=== PATIENT | female | born 1940 | race Caucasian/White ===

== ENCOUNTER → 2024-06-13 10:43 | Outpatient (REF) | payer OTHER, SELFPAY | LOC: DHVS 10:43 | PROVIDERS: ATTENDING PHYSICIAN Surgery Vascular Surgery; FAMILY PHYSICIAN Student in an Organized Health Care Education/Training Program | DX: I65.29 Occlusion and stenosis of unspecified carotid artery (principal) | CPT/HCPCS: 93880 ==

== ENCOUNTER → 2024-10-06 06:49 | Outpatient (REF) | payer OTHER, SELFPAY | LOC: RAD 06:49 | PROVIDERS: ATTENDING PHYSICIAN Podiatrist Foot & Ankle Surgery; FAMILY PHYSICIAN Family Medicine | DX: M79.671 Pain in right foot (principal); I73.89 Other specified peripheral vascular diseases | CPT/HCPCS: 93922; 93925 ==

== ENCOUNTER → 2025-01-05 08:37 | Outpatient (REF) | payer OTHER, SELFPAY | LOC: RAD 08:37 | PROVIDERS: ATTENDING PHYSICIAN Family Medicine | DX: M81.0 Age-related osteoporosis without current pathological fracture (principal) | CPT/HCPCS: 77080 ==

== ENCOUNTER → 2025-05-27 08:11 | Outpatient (REF) | payer OTHER, SELFPAY | LOC: RCS 08:11 | PROVIDERS: ATTENDING PHYSICIAN Family Medicine | DX: I35.1 Nonrheumatic aortic (valve) insufficiency (principal); R01.1 Cardiac murmur, unspecified | CPT/HCPCS: 93306 ==

== ENCOUNTER → 2025-06-18 07:47 | Outpatient (REF) | payer OTHER, SELFPAY | LOC: RAD 07:47 | PROVIDERS: ATTENDING PHYSICIAN Surgery Vascular Surgery; FAMILY PHYSICIAN Family Medicine | DX: I65.29 Occlusion and stenosis of unspecified carotid artery (principal); I73.9 Peripheral vascular disease, unspecified | CPT/HCPCS: 93880; 93922; 93925 ==

== ENCOUNTER → 2025-07-01 07:00 | Outpatient (REF) | payer OTHER, SELFPAY | LOC: RAD 07:00 | PROVIDERS: ATTENDING PHYSICIAN Registered Nurse; FAMILY PHYSICIAN Family Medicine | DX: I73.9 Peripheral vascular disease, unspecified (principal) | CPT/HCPCS: 75635; Q9967 ==

== ENCOUNTER 2025-09-01 06:11 | Inpatient (IN) | payer OTHER, SELFPAY ==
[2025-08-20 09:29] VITALS: BMI 40.2
[2025-08-20 10:17] LABS: Hematocrit 36.5 % (37.0-47.0); Hemoglobin 12.5 g/dL (12.0-16.0); Mean Corp Hgb Conc. 34.2 g/dL (33.0-37.0); Mean Corpuscular Volume 98.6 fL (81.0-99.0); Nucleated Red Blood Cells % 0 %; Platelet Count 233 10^3/uL (130-400); Red Cell Dist. Width 12.4 % (11.5-14.5)
[2025-08-20 10:35] LABS: INR 1.00; PT 13.7 Sec (11.4-14.6)
[2025-08-20 10:37] LABS: APTT 30.1 Sec (23.4-35.0)
[2025-08-20 11:22] LABS: Blood Urea Nitrogen 12 mg/dl (7-17); Calcium 9.5 mg/dl (8.4-10.2); Carbon Dioxide 26 mmol/L (22-30); Chloride 89 mmol/L (98-107); Estimated Creatinine Clearance 43 ml/min; Glucose 90 mg/dl (70-99); Potassium 4.3 mmol/L (3.5-5.1); Sodium 123 mmol/L (135-145); eGFR > 60.00
--- NOTE | 2025-08-25 09:28 | PTCARENOTE ---
Na+ 123 collected on 08/20/25; Juan David @ 's office were both notified.
--- NOTE | 2025-08-28 15:31 | PTCARENOTE ---
Patients 08/20 sodium 126- reviewed by Dr. Lowery no additional interventions required
[2025-09-01] VITALS (17 sets, daily range): BP systolic 90–176; BP diastolic 40–80
[2025-09-01] MEDS: PERIDEX 0.12% ORAL RINSE 15 ML PO (07:08)
[2025-09-01] MEDS: NSS 500 IV (07:08)
[2025-09-01] MEDS: BACTROBAN NASAL 1 GRAM NASAL (07:08)
--- NOTE | 2025-09-01 07:32 | W.SUR.PREOP ---
Pre-Operative Surgical Note
-
I have examined this patient prior to the performance of the scheduled procedure.
The patient's condition is unchanged from the time of the current History and
Physical and the patient is able to undergo the scheduled procedure.
[2025-09-01 07:48] LABS: Blood Urea Nitrogen 11 mg/dl (7-17); Calcium 9.2 mg/dl (8.4-10.2); Carbon Dioxide 26 mmol/L (22-30); Chloride 98 mmol/L (98-107); Estimated Creatinine Clearance 48 ml/min; Glucose 83 mg/dl (70-99); Potassium 4.7 mmol/L (3.5-5.1); Sodium 133 mmol/L (135-145); eGFR > 60.00
[2025-09-01 10:29] LABS: ACT-LR - POC > 397 Seconds (116-155)
[2025-09-01 10:32] LABS: ACT-LR - POC 334 Seconds (116-155)
[2025-09-01 11:25] LABS: ACT-LR - POC 261 Seconds (116-155)
[2025-09-01 12:05] LABS: ACT-LR - POC 327 Seconds (116-155)
[2025-09-01 13:05] LABS: ACT-LR - POC 248 Seconds (116-155)
--- NOTE | 2025-09-01 13:46 | CON.PUL ---
Consultation
Consultation Request
Date/Time Consultation Requested: 09/01/2025
Date/Time Consultation Performed: 09/01/2025
Medical History
-
Chief Complaint: Clarification lower extremity, right more than left
History of Present Illness:
Patient is a 85-year-old female with known history of peripheral vascular disease and carotid artery stenosis status post carotid endarterectomy in the past who follows up with vascular surgery as outpatient for worsening claudication symptoms.
Reportedly right leg more affected than leg. Workup as outpatient was suggestive of severe peripheral vascular disease and patient was brought to the OR for revascularization. Postprocedure, patient was admitted to ICU for close monitoring.
Automation Technologist consultation was requested for further input.
Past medical history. Hypertension, hyperlipidemia, GERD, chronic kidney disease, carotid artery disease, Aortic stenosis
Past surgical history. Carotid endarterectomy, , hysterectomy, cataract surgery
Family history. Patient is adopted, no known history of lung cancer in the family
Social history. Non smoker
Allergies / Home Medications
Allergies
Allergy/AdvReac Type Severity Reaction Status Date / Time
No Known Allergies Allergy Verified 09/01/25 07:15
Home Medications
�Medication �Instructions �Recorded �Confirmed �Last Taken �Type
acetaminophen 500 mg tablet 500 mg PO PRN PRN pain 05/18/21 09/01/25 08/31/25 23:00 History
(Tylenol Extra Strength)
calcium 333 mg-vit D3 133 1 ea PO DAILY Supplement 05/18/21 09/01/25 08/25/25 08:00 History
unit-magnesium 133 mg-zinc 5 mg
tablet (Cruz Mag Zinc Plus D3)
lisinopril 10 mg tablet 20 mg PO DAILY Blood Pressure 05/18/21 09/01/25 08/25/25 08:00 History
verapamil 240 mg 24 hr 240 mg PO DAILY Blood Pressure 05/18/21 09/01/25 08/31/25 08:00 History
capsule,extended release
atorvastatin 80 mg tablet 80 mg PO DAILY High Cholesterol 09/07/22 09/01/25 08/25/25 08:00 History
lansoprazole 15 mg capsule,delayed 15 mg PO Q72H Gastrointestinal 09/07/22 09/01/25 08/30/25 08:00 History
release Issue
iwsoduvd-pxb-uospr ac 400 1 tab PO DAILY Supplement 09/07/22 09/01/25 08/25/25 08:00 History
mcg-calcium carb 500 mg-vit K1 20
mcg tablet (Women's 50 Plus
Multivitamin)
diclofenac sodium 1 % topical gel 1 ea topical PRN PRN B/L KNEE PAIN 09/18/22 08/18/25 09/17/22 21:00 History
denosumab 60 mg/mL subcutaneous 60 mg SC [id number] osteoporosis 08/18/25 08/18/25 Unknown History
syringe (Prolia)
hydrochlorothiazide 25 mg tablet 25 mg PO DAILY Blood Pressure 08/18/25 09/01/25 08/25/25 08:00 History
psyllium 1 tsp PO DAILY Constipation 08/18/25 08/18/25 Unknown History
aspirin 81 mg chewable tablet 81 mg PO DAILY Blood Clot 09/01/25 09/01/25 09/01/25 05:00 History
Prevention/Tx
mupirocin 2 % topical ointment 1 applic topical BID groin wounds 09/01/25 09/01/25 09/01/25 05:00 History
Review of Systems
-
Hematologic/Lymphatic: Other (All 14 systems reviewed and negative except as stated above in the history of present illness. Expected postoperative pain)
Vitals / Labs / Diagnostic Testing
Vital Signs
Temp Pulse Resp BP Pulse Ox
97.6 F 82 10 176/44 99
09/01/25 06:27 09/01/25 07:15 09/01/25 07:15 09/01/25 06:52 09/01/25 07:15
Diagnostic Testing:
Physical Exam
-
HEENT: Normocephalic
Cardiovascular: S1/S2
Respiratory: Clear
GI: Non Distended
Neurology: Awake
Skin: Warm
General: Comfortable
Assessment
-
Patient is a 85-year-old female with chronic limb ischemia, s/p aortoiliac stent grafting for severely calcified aortoiliac occlusive disease, loon angioplasty and stenting of left iliac bifurcation and proximal external iliac artery, bilateral
common femoral endarterectomies with profundoplasty's and patch angioplasty, by vascular surgery service, POD # 0
Continue observation following procedure
Follow neurovascular checks per protocol
ASA, Plavix and statin on board
Follow BP monitoring and parameters as set by primary team
Cardiac history reviewed
Monitor on telemetry
Pain control per protocol
RASS goal 0
No prior history of pulmonary disease, no prior h/o smoking
CXR reviewed indicating no acute disease
No prior PFTs for review
Encouraged IS
Diet advancement per protocol
Aspiration precautions
GI prophylaxis: Protonix
Cr at baseline, follow UO
Critical I/Os
Void trials
Replete electrolytes as needed
No signs/symptoms suspicious for infectious etiology at this time
Will observe off antibiotics for now
Follow temperatures/CBC
Hb and platelets postoperatively stable
DVT prophylaxis: Subcu heparin.
Other medical diagnoses:
- Hypertension
- Hyperlipidemia
- Chronic GERD
- Osteoporosis
- History of carotid artery disease, status post carotid endarterectomy in 08/2022.
- H/o Aortic stenosis, moderate. Follows up with Cardiology as o/p
Critical Care time [56] mins -- The patient is admitted for acute critical illness for the treatment of vital organ failure and/or prevention of further life-threatening conditions. Total care includes time spent in review of history, physical exam,
medications, hemodynamic/ventilator parameters, laboratory data, imaging and discussion with house staff, pharmacy, respiratory therapy, ballistics expert forensic, and nursing
Data:
CXR 08/2025: 1. Clear lungs.
2. No significant change compared to prior study.
ECHO 05/2025: Normal left ventricular size and function. Normal regional wall motion. Mild
concentric left ventricular hypertrophy. LV ejection fraction is 58% by
volumetric assessment. Diastolic function indeterminate.
Thickened mitral valve leaflets with decreased leaflet excursion. Mitral
annular calcification. There is likely mild mitral stenosis with mean gradient
of 4 mmHg and mitral valve area 2.3 cm2. There is at least moderate mitral
regurgitation which may have been underestimated due to mitral annular
calcification.
Indexed LA volume is moderately abnormal (42-48 mL/m2).
Trileaflet aortic valve. Thickened and calcified aortic valve with restricted
leaflet motion. Moderate aortic stenosis. Peak/mean gradients across the aortic
valve are 38/20 mmHg. Using an LVOT diameter of 1.9 cm, the aortic valve by the
Continuity equation is calculated at 1.4 cm2. Mild aortic regurgitation.
Tricuspid valve opens normally. Mild tricuspid regurgitation. Estimated
pulmonary artery pressure of 34 mmHg. Assuming a right atrial pressure of 3
mmHg.
Dilated right atrium.
Normal right ventricular size and function.
Since echo August 2022, there is moderate aortic stenosis, MR has worsened
from mild to at least moderate and there is mild mitral stenosis.
Lexiscan 08/2022: Negative for ischemia
--- NOTE | 2025-09-01 14:41 | OR.RPT ---
Operative Report
Operative Report
Date of Operation: 09/01/2025
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
Procedure:
1. Intravascular lithotripsy to the distal abdominal aorta (12 mm x 30 mm Shockwave L6)
2. Intravascular lithotripsy to the left common iliac artery and external iliac artery (9 mm x 30 mm Shockwave L6)
3. Intravascular lithotripsy to the right common iliac artery and external iliac artery (9 mm x 30 mm shockwave L6)
4. Aortoiliac stent grafting using Endologix AFX device for severely calcified aortoiliac occlusive disease (22�60/13�40 AFX main body; 25�75 suprarenal extension)
5. Balloon angioplasty and stenting of left iliac bifurcation and proximal external iliac artery (overlapping express LD stents 10 mm x 37 mm distal common iliac artery, 9 mm x 37 mm proximal external iliac artery)
6. BILATERAL common femoral endarterectomies with profundoplasties and patch angioplasty using bovine pericardium
7. Introduce wire and catheter to aorta from bilateral femoral artery access
8. Diagnostic aortobiiliac arteriogram
Surgeon: Clinton Hernandez III, MD
Jv Baseball Coach: Alesia Capone MD PGY2
Anesthesia: General
Complications: None
Estimated Blood Loss: 300 cc
History and Indications for Procedure: 85-year-old female with debilitating claudication and severe heavily calcified aortoiliac and iliofemoral occlusive disease. We brought her to the operating room for hybrid revascularization
Procedure in Detail: Milly Ivy was correctly identified and placed supine on the operating table. The pannus was retracted. Using ultrasound guidance we identified the common femoral arteries and marked vertical incisions appropriately at the
skin. After adequate induction of anesthesia the abdomen, pelvis and bilateral groins were positioned, prepped and draped in the usual sterile fashion. Preoperative antibiotics were administered. A timeout procedure was performed with the nursing
and anesthesia staff confirming the patients identity as well as the nature and laterality of the procedure.
Vertical incisions were made bilaterally over the previously made skin narayanan. Using electrocautery and sharp dissection the common femoral arteries were exposed bilaterally. Dissection was continued well under the inguinal ligaments bilaterally to
the distal external iliac arteries. Proximal control was obtained bilaterally with vessel loops around the distal external iliac arteries. We continued dissection distally and expose the femoral bifurcations bilaterally. The proximal superficial
femoral arteries were controlled with vessel loops bilaterally. The proximal profunda femoral arteries were exposed and controlled with vessel loops bilaterally.
Systemic heparin was administered. Under direct visualization we accessed the common femoral arteries bilaterally at soft spots away from the calcified plaque. Bilateral 8 Gambian sheaths were then placed over Bentson wires. A retrograde iliac
arteriogram was performed on the left demonstrating significant calcified iliac occlusive disease. Under roadmap guidance we navigated through the iliac disease using a Quickcross catheter and Glidewire. We then navigated through the coral reef
occlusive plaque in the distal abdominal aorta using the same approach. The wire and catheter were advanced into the distal descending thoracic aorta. I exchanged out for a V18 wire.
On the right I was able to navigate a Bentson wire to the distal abdominal aorta. I then used a Quickcross catheter and Glidewire to navigate through the coral reef plaque in the distal abdominal aorta into the descending thoracic aorta. I then
exchanged out for a V18 wire on the right.
Due to the heavily calcified nature of the distal abdominal aortic plaque and in an effort to modify the calcium to achieve maximum luminal gain with endovascular intervention I elected to proceed with intravascular lithotripsy. A 12 mm x 30 mm
Shockwave L6 balloon was placed across the calcified aortic stenosis under roadmap guidance. Alternating rounds of lithotripsy pulse delivery at sub-nominal pressure and angioplasty at nominal pressure was performed across the distal abdominal
aortic stenosis. In between rounds of pulse delivery and angioplasty the balloon was deflated and repositioned under roadmap guidance. All 300 pulses were delivered. This balloon was then removed.
Due to the heavily calcified nature of the left common iliac artery, iliac bifurcation and proximal external iliac artery disease and in an effort to modify the calcium to achieve maximum luminal gain with endovascular intervention I elected to
proceed with intravascular lithotripsy. A 9 mm x 30 mm Shockwave L6 balloon was placed across the iliac stenosis under roadmap guidance. Alternating rounds of lithotripsy pulse delivery at sub-nominal pressure and angioplasty at nominal pressure was
performed across the stenosis. In between rounds of pulse delivery and angioplasty the balloon was deflated and repositioned under roadmap guidance. The aortic bifurcation, entire length of left common iliac artery, iliac bifurcation and proximal
external iliac artery were treated with this balloon. All 300 pulses were delivered.
Due to the heavily calcified nature of the right common iliac and external iliac artery disease and in an effort to modify the calcium to achieve maximum luminal gain with endovascular intervention I elected to proceed with intravascular
lithotripsy. A 9 mm x 30 mm Shockwave L6 balloon was placed across the stenosis under roadmap guidance. Alternating rounds of lithotripsy pulse delivery at sub-nominal pressure and angioplasty at nominal pressure was performed across the stenosis.
In between rounds of pulse delivery and angioplasty the balloon was deflated and repositioned under roadmap guidance. The aortic bifurcation, right common iliac artery and external iliac artery were treated with this balloon. All 300 pulses were
delivered.
Following complete vessel prep of the aortoiliac segment with shockwave we then proceeded with the aortoiliac stent grafting portion of the procedure. On the right I exchanged out for a Lunderquist wire which was positioned in the proximal
descending thoracic aorta. On the left I advanced a longer 8 Gambian sheath into the distal abdominal aorta over an Amplatz wire.
Over the Lunderquist wire in the right femoral access I placed the 17 Gambian AFX introducer sheath and advanced the radio-opaque sheath tip to the abdominal aorta, proximal to the coral reef plaque in the abdominal aorta. An En-Snare catheter was
placed over a Bentson wire from the left femoral access and advanced to the aortic bifurcation. The En-Snare was then advanced through to the catheter tip.
The contralateral limb wire of the AFX2 main body was introduced through the introducer sheath and advanced to the aortic bifurcation. The 22-60/13-40 AFX2 bifurcated main body was then loaded onto the Lunderquist wire and advanced through the
introducer sheath. The wire was snared from the contralateral side and pulled out the left femoral access and the AFX2 main body was advanced until the limbs were above the aortic bifurcation. The entire system was then pulled down onto the aortic
bifurcation. The main body was then deployed by pulling the control cord.
The contralateral limb was then deployed by pulling the yellow limb cover. Once this was completed I advanced a pigtail catheter over the contralateral limb wire until the tip was in contact with the wire lock. The contralateral limb was then pulled
as I advanced the pigtail up to release it from the wire lock. The wire was removed and the formed pigtail catheter was then advanced proximally.
The ipsilateral limb was deployed by pinning the inner core and retracting the AFX introducer sheath.
Through the introducer sheath I advanced a 25/75 suprarenal endograft extension and performed an arteriogram to clearly visualize the renal arteries. The stent was positioned appropriately below the left renal artery and deployed under roadmap
guidance in the desired location.
A Coda balloon was introduced on the right and used to profile the proximal and distal seal zones as well as all areas of overlap. The Coda balloon was also used to profile the right iliac limb. A 10 mm x 40 mm angioplasty balloon was used to
treat the left iliac limb. A retrograde arteriogram through the 8 Gambian sheath revealed an improved result following intravascular lithotripsy but residual plaque remained. I then extended distally using overlapping express LD stents. A 10 mm x
37 mm express LD was positioned in the distal left common iliac artery and deployed. I then extended this with a 9 mm x 37 mm express LD, crossing the iliac bifurcation and extending into the proximal external iliac artery.
A completion aortogram demonstrated an excellent technical result. The AFX stent graft was widely patent with good flow. The iliac bifurcations were preserved bilaterally. The bare-metal stents in the left distal common iliac and external iliac
arteries were patent. No residual stenosis was identified. The left renal artery was widely patent on completion. The superior mesenteric artery was patent on completion.
Following the endovascular portion of the procedure we turned our attention to the femoral endarterectomies. On the left, the wire and sheath were removed from the femoral access site. The proximal and distal vessel loops were secured. A Derra
clamp was placed on the external iliac artery under the inguinal ligament. I then extended the arterial puncture site proximally and distally with Dougherty scissors. The arteriotomy was extended onto the proximal profunda femoral artery at its
origin. An endarterectomy was performed in standard fashion using a [place] elevator. The distal end of the calcified plaque feathered nicely at the profunda femoral artery origin. No distal intimal flap was identified. Additional plaque elements
were pulled out of the distal external iliac artery using forceps and a hemostat. The endarterectomy plane was irrigated with heparinized saline solution. Any loose fronds of tissue were removed. A 1 cm precut piece of bovine pericardium was
brought onto the field and sewn in place as a patch angioplasty using a running 5-0 Prolene suture. Prior to the completion of the patch anastomosis I then allowed temporary forward bleeding and backbleeding. The area under the patch was irrigated
with heparinized saline solution to remove any potential thrombus or debris. The patch anastomosis was completed. The proximal clamp and the distal vessel loops were released. Immediately there was a good pulse within the common femoral artery
and proximal profunda femoral artery. A robust Doppler signal was audible in the profunda femoral artery and proximal branches. The patch suture line was closely inspected. Hemostasis was achieved at the suture line. The left groin was then
packed with dry gauze and we focused on the right.
On the right the 17 Gambian sheath and the wire were removed from the femoral access site. The proximal and distal vessel loops were secured. A Derra clamp was placed on the right external iliac artery under the inguinal ligament. I then extended
the arterial puncture site proximally and distally with Dougherty scissors. The arteriotomy was continued to the femoral bifurcation and onto the profunda femoral artery origin. An endarterectomy was performed in the standard fashion using a [place]
elevator. The distal end of the calcified plaque was feathered at the profunda femoral artery origin. A slight intimal flap at the profunda origin was tacked down with 3 interrupted evenly spaced 6-0 Prolene sutures along the back wall. This
provided a nice result. Additional plaque elements were pulled out of the distal external iliac artery using forceps and a hemostat. The endarterectomy plane was irrigated with heparinized saline solution. Any loose fronds of tissue were removed.
A 1 cm precut piece of bovine pericardium was brought onto the field and sewn in place as a patch angioplasty using a running 5-0 Prolene suture. Prior to the completion of the patch anastomosis I then allowed temporary forward bleeding and
backbleeding. The area under the patch was irrigated with heparinized saline solution to remove any potential thrombus or debris. The patch anastomosis was completed. The proximal clamp and the distal vessel loops were released. Immediately
there was a good pulse within the common femoral artery and proximal profunda femoral artery. A robust Doppler signal was audible in the profunda femoral artery and proximal branches. The patch suture line was closely inspected and hemostasis was
achieved.
Both groins were then irrigated with copious amounts of warm saline solution. The patch suture lines were both closely inspected once again and hemostasis was achieved. Protamine was administered. Hemostasis was achieved in the wound beds
bilaterally. The wounds were then closed in layers. Sterile MATTHEW dressings were applied.
The patient tolerated the procedure well and was taken to the PACU in stable condition.
Attestation: I was present and responsible for the entire procedure
Signed:
Clinton Hernandez III, MD
Vascular Surgery
[facility]
[2025-09-01 14:53] LABS: Hematocrit 31.3 % (37.0-47.0); Hemoglobin 10.9 g/dL (12.0-16.0); Mean Corp Hgb Conc. 34.8 g/dL (33.0-37.0); Mean Corpuscular Volume 100.6 fL (81.0-99.0); Platelet Count 221 10^3/uL (130-400); Red Cell Dist. Width 12.4 % (11.5-14.5)
[2025-09-01 15:01] LABS: Blood Urea Nitrogen 10 mg/dl (7-17); Calcium 9.2 mg/dl (8.4-10.2); Carbon Dioxide 20 mmol/L (22-30); Chloride 103 mmol/L (98-107); Estimated Creatinine Clearance 48 ml/min; Glucose 161 mg/dl (70-99); Potassium 4.2 mmol/L (3.5-5.1); Sodium 130 mmol/L (135-145); eGFR > 60.00
[2025-09-01] MEDS: PLAVIX 300 MG PO (15:24)
[2025-09-01 15:43] LABS: B.E. - POC -2.2 mmol/L; Glucose - POC 148 mg/dl (70-99); HCO3 - POC 22 mmol/L (21-28); Hematocrit - POC 31 % PCV (37-47); Hemodilution- POC Yes; Hemoglobin Calculated - POC 10.7; Ionized Calcium - POC 1.04 mmol/L (1.15-1.33); Lactate - POC 0.83 mmol/L (0.36-0.75); O2 Saturation %Calculated-POC 99.6 % (94-98); PCO2 - POC 37 mmHg (35-48); PO2 - POC 177 mmHg (83-108); Potassium - POC 3.9 mmol/L (3.5-5.1); Sodium - POC 133 mmol/L (136-145); Specimen Type - POC Arterial; pH - POC 7.40 (7.35-7.45)
[2025-09-01 16:24] LABS: Glucose - Point of Care 133 mg/dl (70-99)
[2025-09-01] MEDS: NSS 1000 IV (16:58)
[2025-09-01] MEDS: HEPARIN 5000 UNITS SC ×2 (17:30→23:54)
[2025-09-01] MEDS: CARDENE 200 IV (17:42)
--- NOTE | 2025-09-01 18:43 | PTCARENOTE ---
Received patient from PACU at 1615 s/p B/L femoral endarterectomy. Assessment, vital signs and neurovasc assessments documented in flowsheets. + b/l pedal and L post tib pulses, (-) R post tib on doppler- Vascular team made aware of neurovasc and
vital sign trends. Updates with wood tool maker at bedside. Cardene gtt targeting MAP 70-90 per vascular team. Strict bedrest. [place] huggar in place. Call dickson within reach.
[2025-09-01 19:58] LABS: ALT (SGPT) 21 U/L (0-35); AST (SGOT) 33 U/L (14-36); Albumin 3.3 g/dl (3.5-5.0); Alkaline Phosphatase 48 U/L (38-126); Magnesium 1.7 mg/dl (1.6-2.3); Total Protein 5.8 g/dl (6.3-8.2)
--- NOTE | 2025-09-01 20:00 | PTCARENOTE ---
Assumed care of patient. Hand-off drip validation done. Patient is aox3, resting in bed, no complaints of pain at this time. Temperature is 99.1 core. Patient is in NSR with Cardene at 2.5 for goal MAP 70-90. No edema noted on exam. Hand-off
neurovascular check done. Bilateral dorsalis pedis pulses obtained with doppler. Left PT pulse obtained with doppler. Right PT pulse unable to be obtained at 7pm check with doppler. Per off-going nurse this is how patient was received from PACU
post-op and the vascular PAs and Dr. Hernandez were made aware. At 8pm check right PT pulse able to obtained with doppler, witnessed by two nurses. Sensation intact. Cap refill > 2 seconds bilaterally. Bilateral femoral sites intact. Patient is
saturating 100% on 4L NC, lung sounds clear. Abdomen is round, soft, nontender. No gas yet. Patient has temperature sensing Hernandez catheter in place. Draining light yellow urine. IV sites and arterial line c/d/i.
[2025-09-01] MEDS: BACTROBAN 2% OINTMENT 1 APPLIC TOPICAL (20:02)
[2025-09-01 20:26] LABS: APTT 32.5 Sec (23.4-35.0); INR 1.13; PT 14.8 Sec (11.4-14.6)
[2025-09-02] VITALS (17 sets, daily range): BP systolic 82–145; BP diastolic 38–64; BMI 38.5
--- NOTE | 2025-09-02 | PTCARENOTE ---
No change in patient assessment. Q1 neurovascular checks continued with doppler pulses in bilateral DP and PTs. Patient has no complaints of pain. Cardene running @ 2.5 mg/hr for MAP goal of 70-90. Current MAP 87.
[2025-09-02] MEDS: ZOFRAN 4 MG IV (03:06)
[2025-09-02] MEDS: NSS 1000 IV (03:10)
--- NOTE | 2025-09-02 04:00 | PTCARENOTE ---
Cardene drip increased to 5mg/hr (25ml/hr) for goal MAP 70-90. Current MAP 80. Patient had episode of emesis, resolved with one dose of zofran. ICU SHIELD INSTALLER made aware. Continue Q1 neurovascular checks with doppler pulses obtainable bilaterally in DP and
PT sites. Patient has no complaints of pain at this time. No other changes in assessment.
[2025-09-02 04:24] LABS: Hematocrit 27.6 % (37.0-47.0); Hemoglobin 9.2 g/dL (12.0-16.0); Mean Corp Hgb Conc. 33.3 g/dL (33.0-37.0); Mean Corpuscular Volume 101.1 fL (81.0-99.0); Platelet Count 181 10^3/uL (130-400); Red Cell Dist. Width 12.8 % (11.5-14.5)
[2025-09-02 04:37] LABS: APTT 29.5 Sec (23.4-35.0); INR 1.09; PT 14.4 Sec (11.4-14.6)
[2025-09-02 04:52] LABS: Blood Urea Nitrogen 13 mg/dl (7-17); Calcium 8.3 mg/dl (8.4-10.2); Carbon Dioxide 22 mmol/L (22-30); Chloride 104 mmol/L (98-107); Estimated Creatinine Clearance 35 ml/min; Glucose 122 mg/dl (70-99); Potassium 4.2 mmol/L (3.5-5.1); Sodium 132 mmol/L (135-145); eGFR 48.94
[2025-09-02] MEDS: CARDENE 200 IV (05:01)
[2025-09-02] MEDS: CALAN EXTENDED RELEASE 240 MG PO (07:46)
[2025-09-02] MEDS: LIPITOR 80 MG PO (07:50)
[2025-09-02] MEDS: PLAVIX 75 MG PO (07:50)
[2025-09-02] MEDS: OSCAL 500 + D 500 MG PO (07:50)
[2025-09-02] MEDS: ORETIC 25 MG PO (07:50)
[2025-09-02] MEDS: ZESTRIL 20 MG PO (07:50)
[2025-09-02] MEDS: THERAGRAN 1 TABLET PO (07:50)
[2025-09-02] MEDS: LOW STRENGTH ASPIRIN 81 MG PO (07:50)
[2025-09-02] MEDS: METAMUCIL, KONSYL 1 PACKET PO (07:51)
[2025-09-02] MEDS: HEPARIN 5000 UNITS SC ×2 (07:51→17:14)
[2025-09-02] MEDS: BACTROBAN 2% OINTMENT 1 APPLIC TOPICAL (07:51)
--- NOTE | 2025-09-02 07:51 | W.PN.VS ---
Addendum entered and electronically signed by Arron Gonzalez MD 09/02/25 11:27:
Seen and examined with GENDER STUDIES PROFESSOR's. Agree with findings as noted below. Agree with plan as discussed and noted below.
Original Note:
Today's Communication / Plan
-
Seen and assessed with Dr. Gonzalez
Assessment/Plan
-
Postop day 1
1. Intravascular lithotripsy to the distal abdominal aorta (12 mm x 30 mm Shockwave L6)
2. Intravascular lithotripsy to the left common iliac artery and external iliac artery (9 mm x 30 mm Shockwave L6)
3. Intravascular lithotripsy to the right common iliac artery and external iliac artery (9 mm x 30 mm shockwave L6)
4. Aortoiliac stent grafting using Endologix AFX device for severely calcified aortoiliac occlusive disease (22�60/13�40 AFX main body; 25�75 suprarenal extension)
5. Balloon angioplasty and stenting of left iliac bifurcation and proximal external iliac artery (overlapping express LD stents 10 mm x 37 mm distal common iliac artery, 9 mm x 37 mm proximal external iliac artery)
6. BILATERAL common femoral endarterectomies with profundoplasties and patch angioplasty using bovine pericardium
7. Introduce wire and catheter to aorta from bilateral femoral artery access
8. Diagnostic aortobiiliac arteriogram
Plan:
Continue IV fluids, 500 cc bolus
Increase diet as tolerated
DC A-line
DC Cardene
Oral BP meds this morning
Chest x-ray
Out of bed as tolerated
Continue ASA and Plavix, daniel check Xarelto for Compass protocol
Continue ICU
Subjective Data
-
Date of Service: September 02, 2025
Patient seen at bedside this a.m. with Dr. Gonzalez. Patient offers no complaints at this time. Patient was noted to be nauseous postop with some vomiting. Patient denies nausea at this time. Minimal burping. On Cardene drip this morning.
Objective Data
-
Vital Signs
Temp Pulse Resp BP Pulse Ox
99.6 F 101 19 161/54 100
09/02/25 07:00 09/02/25 06:15 09/02/25 06:15 09/01/25 22:00 09/02/25 06:00
Intake and Output
09/01/25 09/02/25 09/03/25
06:59 06:59 06:59
Intake Total 1597.5 / 1597.5
Output Total 1140 / 1140
Balance 457.5 / 457.5
Intake:
Oral fluids 40 / 40
IV fluids (Total) 1557.5 / 1557.5
Nicardipine 237.5 / 237.5
Normosol 200 / 200
Nss 1,000 ml @ 80 mls/hr IV . 1120 / 1120
[id number] [facility] Rx#:[id number]
Output:
Urine, Hernandez 1140 / 1140
Lab Results
09/02/25 04:09
09/02/25 04:09
Calcium 8.3 mg/dl (8.4-10.2) L 09/02/25 04:09
Phosphorus 5.4 mg/dl (2.5-4.5) H 09/01/25 14:41
Magnesium 1.7 mg/dl (1.6-2.3) 09/01/25 14:41
Total Bilirubin 0.6 mg/dl (0.2-1.3) 09/01/25 14:41
AST 33 U/L (14-36) 09/01/25 14:41
ALT 21 U/L (0-35) 09/01/25 14:41
Alkaline Phosphatase 48 U/L (38-126) 09/01/25 14:41
Total Protein 5.8 g/dl (6.3-8.2) L 09/01/25 14:41
Albumin 3.3 g/dl (3.5-5.0) L 09/01/25 14:41
Physical Exam
-
AAO x 3
No tachypnea on room air
No tachycardia
Abdomen soft
Bilateral groin sites clean, dry, intact, soft, flat
Bilateral DP Dopplers audible
Bilateral feet warm and pink
[2025-09-02] MEDS: PROTONIX 40 MG PO (07:52)
[2025-09-02] MEDS: NSS 500 IV (08:31)
--- NOTE | 2025-09-02 09:00 | PTCARENOTE ---
Assumed care of patient at 0700 s/p B/L femoral endarterectomy. B/L groin janneth dressings intact. Assessment, vital sign and neurovasc checks documented in flowsheet. R radial a line removed. Plan discussed with ICU and Vascular teams during morning
rounds. Patient denies pain. Care on going.
--- NOTE | 2025-09-02 11:02 | WOUNDNOTE ---
[facility] RN note: Patient admitted with bilateral femoral endarterectomy s/p vascular procedure yesterday.
See H&P for complete history.
PMH: PAD, carotid stenosis, HTN, compression fractures, chronic back pain, ambulation dysfunction, R 5th toe callus, obesity.
Wound Location and type/assessment: Patient admitted with: R lateral 5th toe callus. L anterior 1st MTH dry linear scabbed abrasion. R medial thigh deep dermal ulcer suspect are broken blisters. Linear open areas abdominal fold. Blanchable red
heels.
Appetite: on low cholesterol diet.
Pressure redistribution devices in place: [employer] air bed. Air chair cushion. Patient needs help to turn.
Plan: Lower abdominal open area cleanse with saline, piece of silver alginate and non woven gauze tucked to cover. Silicone border foam applied to R medial thigh. Silver alginate and 1.6x2 inch silicone border foam applied to R lateral 5th toe.
Patient stated she applied silver alginate to R 5th toe when is opens. She is followed by Dr. Torres.
Will confirm orders with Nithya Alberto Vascular PA and discussed with JASON Pollack.
Care plan to be updated and will follow as needed.
Note to case management of equipment requested for discharge: Air mattress at SNF if needed.
--- NOTE | 2025-09-02 11:03 | WOUNDNOTE ---
LEFT GREAT TOE
--- NOTE | 2025-09-02 11:05 | WOUNDNOTE ---
RIGHT LATERAL 5TH TOE
--- NOTE | 2025-09-02 11:06 | WOUNDNOTE ---
RIGHT LATERAL 5HT TOE
--- NOTE | 2025-09-02 11:06 | WOUNDNOTE ---
RIGHT MEDIAL THIGH
--- NOTE | 2025-09-02 11:13 | WOUNDNOTE ---
LEFT ANTERIOR 1ST MTH
[2025-09-02] MEDS: TYLENOL 650 MG PO (11:24)
--- NOTE | 2025-09-02 12:50 | PTCARENOTE ---
Patient OOB to chair with x2 assist. OOB for 30 minutes then transferred back to bed d/t back pain. PRN tylenol dose given, patient resting comfortably in bed. Neurovasc checks, vital sign trends and assessments documented in flowsheets. Care
ongoing.
[2025-09-02 13:17] LABS: Glucose - Point of Care 99 mg/dl (70-99)
--- NOTE | 2025-09-02 13:30 | CON.NEURO4 ---
Addendum entered and electronically signed by Johny Mendoza MD 09/02/25 19:48:
I saw and examined the patient on 09/02/2025. I also discussed discussed the patient's assessment and the management plan with nurse practitioner Liss Lema. I generally agree with the note by nurse practitioner Liss Lema as given
below. My impression is as below.
This is an 85-year-old female with significant peripheral artery disease followed by Vascular Surgery as an outpatient who has presented to the hospital on 09/01/25 for revascularization. She underwent b/l aortoiliac stenting and b/l femoral
endarterectomy and was at her baseline postoperatively. Today (09/02/25), nursing staff reports that she was at her baseline at 1200 when she went to take a nap. At 1300 they went to do her vascular assessment and noted that her speech was suddenly
dysarthric and she reported that the tip of her tongue felt numb. A stroke alert was activated and CT head, CTA head/neck were obtained and were unremarkable
On neurologic examination, the patient is alert and oriented x 3, speech shows mild dysarthria and mild expressive aphasia, the cranial nerves II to XII grossly intact, the motor strength is grossly 5/5 bilaterally in the upper and lower
extremities, the sensations are grossly intact bilaterally and the cerebellar examination did not show limb ataxia.
The NIHSS was 2.
Upon returning from CT scan, her symptoms have significantly improved. She is not a candidate for TNK due to low NIHSS, recent major surgery, and no LVO. She is currently on DAPT with aspirin and clopidogrel. She is also on atorvastatin 80 mg
daily. Will recommend an echocardiogram and a carotid ultrasound. There is no need for MRI of the brain as it will not change the management.
Original Note:
Consultation - Neurology 4
-
CONSULTING PHYSICIAN: Johny Mendoza MD
REFERRING PHYSICIAN: Vascular Surgery/JORGE Grimes
DICTATED BY: JORGE Kilgore
DATE/TIME OF REQUEST: 09/02/25
DATE/TIME OF CONSULTATION: 09/02/25
Reason for Consultation: Stroke Alert
History of Present Illness:
This is an 85-year-old female with significant peripheral artery disease followed by Vascular Surgery as an outpatient who has presented to the hospital on 09/01/25 for revascularization. She underwent b/l aortoiliac stenting and b/l femoral
endarterectomy and was at her baseline postoperatively. Today (09/02/25), nursing staff reports that she was at her baseline at 1200 when she went to take a nap. At 1300 they went to do her vascular assessment and noted that her speech was suddenly
dysarthric and she reported that the tip of her tongue felt numb. A stroke alert was activated and CT head, CTA head/neck were obtained and are negative for any acute findings. NIHSS is 2 on neurology's assessment for mild dysarthria and very mild
difficulty getting her words out. Upon returning from CT scan, her symptoms have significantly improved. She denies any headache, dizziness, vision changes, numbness, and weakness. She is not a candidate for TNK/IAT due to low NIHSS, recent major
surgery, and no LVO. She is currently on DAPT with aspirin and clopidogrel.
Past Medical History: HTN, HLD, CKD, carotid artery stenosis, PAD, GERD, aortic stenosis, chronic back pain/compression fracture, ambulatory dysfunction, ischemic left third toe wound, ANIYA
Surgical History: R CEA, hysterectomy, b/l cataract removal,
Family History: Adopted.
Social History: Occasional alcohol. Denies tobacco and illicit drug use.
Allergies: No known allergies.
Home Medications: See below.
Review of Symptoms:
Patient denies any fever, headache, chest pain, shortness of breath, GI or symptoms.
�Per the HPI.�All systems are reviewed negative except above.
Physical Exam:
The patient is afebrile,abdomen is nondistended, breathing is unlabored, skin is cool and dry.
NIH Stroke Scale:
I performed the NIH stroke scale on the patient on 09/02/25 at 1330. The patient scored 2 points on the NIH stroke scale assessment, which were assigned as follows: See below.
Neurologic Examination:
The patient is awake, alert and oriented x 3. He is able to follow commands and answer questions appropriately. There is intermittent mild aphasia/difficulty getting words out, there is mild dysarthria. On cranial nerve assessment, pupils are 3 mm
bilateral, round and reactive to light and accommodation. Visual alanis are full. Extraocular movements are intact. Facial sensations are intact and bilaterally symmetrical, there is no facial asymmetry. Hearing is intact bilaterally to normal
conversation volume. Tongue palate and uvula are midline. Sternocleidomastoid strengths are full bilaterally. Motor strengths are 5/5 bilateral upper and 4/5 bilateral lower (limited due to surgical sites) extremities on medical [employer] [place]
scale. There is no drift or involuntary movement noted. There was no extinction noted on double simultaneous stimulation. Coordination is intact by finger to nose bilaterally.
Lab Results: See below.
Neuro Imaging:
1. CT Head 09/02/25: No acute intracranial abnormality. ASPECT score: 10.
2. CTA Head/Neck 09/02/25: No CTA evidence for high-grade stenosis or occlusion of the [place]. Patent right carotid arterial system status post carotid endarterectomy. Less than 50% stenosis of the left carotid bulb. Calcified
atherosclerosis elsewhere in the bilateral common carotid arteries and intracranial segments of the bilateral internal carotid arteries causing mild stenoses.
Differentials for the patient's presentation include:
1. Acute onset speech changes s/p extensive vascular surgery on 09/01/25; etiology of symptoms is uncertain, possibilities include a tiny stroke, TIA, metabolic disturbance in the setting of recent anesthesia.
Patient has the following risk factors for their symptoms: Recent vascular procedure, age, HTN, HLD
IV Tenecteplase/IAT candidacy: She is not a candidate for TNK/IAT due to low NIHSS, recent major surgery, and no LVO.
Recommendations:
-Continue DAPT with aspirin 81mg and clopidogrel 75mg daily.
-Do not see a role for further neurological imaging at this time, MRI brain findings will not change the plan of care. Consider this as an outpatient if symptoms persist.
-Goal normotension.
-Checking blood work for metabolic abnormalities.
-NIHSS and neurological checks per unit guidelines.
-Provide patient/family with a stroke education packet.
-LDL goal <70. Lipid panel is pending. Continue atorvastatin 80mg.
-Goal normoglycemia, hbA1c is pending.
-ST evaluation.
-DVT prophylaxis.
Discussed patient care with: Dr. Mendoza, the patient
Vital Signs and Labs
-
Vital Signs and Labs:
Vital Signs
Temp Pulse Resp BP Pulse Ox
99 F 103 19 144/51 100
09/02/25 11:13 09/02/25 07:50 09/02/25 06:15 09/02/25 07:50 09/02/25 08:00
Lab Results
09/02/25 04:09
09/02/25 04:09
PT 14.4 Sec (11.4-14.6) 09/02/25 04:09
INR 1.09 09/02/25 04:09
APTT 29.5 Sec (23.4-35.0) 09/02/25 04:09
Sodium 132 mmol/L (135-145) L 09/02/25 04:09
Potassium 4.2 mmol/L (3.5-5.1) 09/02/25 04:09
BUN 13 mg/dl (7-17) 09/02/25 04:09
Glucose 122 mg/dl (70-99) H 09/02/25 04:09
Calcium 8.3 mg/dl (8.4-10.2) L 09/02/25 04:09
Phosphorus 5.4 mg/dl (2.5-4.5) H 09/01/25 14:41
Medications
-
Active Medications
Generic Name Dose Route Start Last Admin
Trade Name Freq PRN Reason Stop Dose Admin
Acetaminophen 650 mg 09/01/25 13:30 09/02/25 11:24
Acetaminophen 325 Mg Tablet PO 09/29/25 13:29 650 mg
Q4HPRN PRN Administration
mild pain or temp >/= 100.4F
Aspirin 81 mg 09/02/25 08:00 09/02/25 07:50
Aspirin 81 Mg Chewable Tablet PO 09/30/25 07:59 81 mg
DAILY MARCELO Administration
Atorvastatin Calcium 80 mg 09/02/25 08:00 09/02/25 07:50
Atorvastatin (Lipitor) 80 Mg Tablet PO 09/30/25 07:59 80 mg
DAILY MARCELO Administration
Bisacodyl 10 mg 09/01/25 13:30
Bisacodyl 10 Mg Rectal Suppository RECTAL 09/29/25 13:29
DAILYPRN PRN
constipation
Calcium/Vitamin D 500 mg 09/02/25 08:00 09/02/25 07:50
Calcium Carbonate 500 Mg/Vitamin D 5 Mcg (200 Units) Tablet PO 09/30/25 07:59 500 mg
DAILY MARCELO Administration
Clopidogrel Bisulfate 75 mg 09/02/25 08:00 09/02/25 07:50
Clopidogrel 75 Mg Tablet PO 09/30/25 07:59 75 mg
DAILY MARCELO Administration
Heparin Sodium 5,000 units 09/01/25 16:00 09/02/25 07:51
Heparin 5,000 Units/Ml 1 Ml Vial SC 09/29/25 15:59 5,000 units
Q8 MARCELO Administration
Hydrochlorothiazide 25 mg 09/02/25 08:00 09/02/25 07:50
Hydrochlorothiazide 25 Mg Tablet PO 09/30/25 07:59 25 mg
DAILY MARCELO Administration
Hydromorphone HCl 0.5 mg 09/01/25 13:30
Hydromorphone 0.5 Mg/0.5 Ml Syringe IV 09/15/25 13:29
Q4HPRN PRN
severe pain
Sodium Chloride 1,000 mls @ 80 mls/hr 09/01/25 13:30 09/02/25 03:10
Nss IV 1,000 mls
.[id number] MARCELO Administration
Lisinopril 20 mg 09/02/25 08:00 09/02/25 07:50
Lisinopril 20 Mg Tablet PO 09/30/25 07:59 20 mg
DAILY MARCELO Administration
Multivitamins Therapeutic 1 tablet 09/02/25 08:00 09/02/25 07:50
Multivitamin Tablet PO 09/30/25 07:59 1 tablet
DAILY MARCELO Administration
Ondansetron HCl 4 mg 09/02/25 03:01 09/02/25 03:06
Ondansetron 4 Mg/2 Ml Vial IV 09/30/25 03:00 4 mg
Q6HPRN PRN Administration
NAUSEA/VOMITING
Oxycodone HCl 5 mg 09/01/25 13:30
Oxycodone 5 Mg Regular Release Tablet PO 09/15/25 13:29
Q4HPRN PRN
moderate pain
Pantoprazole Sodium 40 mg 09/02/25 08:00 09/02/25 07:52
Pantoprazole 40 Mg Delayed Release Tablet PO 09/30/25 07:59 40 mg
DAILY MARCELO Administration
Psyllium Hydrophilic Mucilloid 1 packet 09/02/25 08:00 09/02/25 07:51
Psyllium Packet PO 09/30/25 07:59 1 packet
DAILY MARCELO Administration
Sodium Chloride 0 flush 09/01/25 16:00
Sodium Chloride 0.9% (Flush) Syringe IV 09/29/25 15:59
PER PROTOCOL MARCELO
Verapamil HCl 240 mg 09/02/25 08:00 09/02/25 07:46
Verapamil 240 Mg (Extended Release) Tablet PO 09/30/25 07:59 240 mg
DAILY MARCELO Administration
Home Medications
�Medication �Instructions �Recorded
acetaminophen 500 mg tablet 500 mg PO PRN PRN pain 05/18/21
(Tylenol Extra Strength)
calcium 333 mg-vit D3 133 1 ea PO DAILY Supplement 05/18/21
unit-magnesium 133 mg-zinc 5 mg
tablet (Cruz Mag Zinc Plus D3)
lisinopril 10 mg tablet 20 mg PO DAILY Blood Pressure 05/18/21
verapamil 240 mg 24 hr 240 mg PO DAILY Blood Pressure 05/18/21
capsule,extended release
atorvastatin 80 mg tablet 80 mg PO DAILY High Cholesterol 09/07/22
lansoprazole 15 mg capsule,delayed 15 mg PO Q72H Gastrointestinal 09/07/22
release Issue
feqklfyk-fkz-vextr ac 400 1 tab PO DAILY Supplement 09/07/22
mcg-calcium carb 500 mg-vit K1 20
mcg tablet (Women's 50 Plus
Multivitamin)
diclofenac sodium 1 % topical gel 1 ea topical PRN PRN B/L KNEE PAIN 09/18/22
denosumab 60 mg/mL subcutaneous 60 mg SC [id number] 08/18/25
syringe (Prolia)
hydrochlorothiazide 25 mg tablet 25 mg PO DAILY Blood Pressure 08/18/25
psyllium 1 tsp PO DAILY Constipation 08/18/25
aspirin 81 mg chewable tablet 81 mg PO DAILY Blood Clot 09/01/25
Prevention/Tx
mupirocin 2 % topical ointment 1 applic topical BID groin wounds 09/01/25
NIH Stroke Score
Subsequent NIH Scale
Date of Subsequent NIH Scale: 09/02/25
Time of Subsequent NIH Scale: 13:30
NIH Stroke Score
Level of Consciousness: 0 - Alert
LOC Questions: 0-Answers both correctly
LOC Commands: 0-Performs both correctly
Best Horizontal Gaze: 0-Normal
Visual Alanis: 0=Normal, no visual loss
Facial Palsy: 0=Normal, symmetrical
Motor - Right Arm: 0=No drift 10 seconds
Motor - Left Arm: 0=No drift 10 seconds
Motor - Right Le-No drift 5 seconds
Motor - Left Le-No drift 5 seconds
Limb Ataxia: 0-Absent
Sensation: 0-Normal
Best Language: 1-Mild aphasia
Dysarthria: 1-Mild slurring
Extinction and Inattention: 0-No abnormality
NIH Total Score:: 2
Modified [place] (mRS) Score
Modified [place] Scale (mRS): No significant disability. Able to carry out usual activities.
Score: 1
Alteplase Contraindication
Inclusion and Exclusion criteria reviewed: Yes
IAT Contraindications: NIHSS < 6 and Imaging doesn't show large vessel occlusion as cause of stroke
--- NOTE | 2025-09-02 13:38 | W.PN.UPDATE ---
Addendum entered and electronically signed by Arron Gonzalez MD 09/02/25 15:33:
Seen and examined. Seen by neurology. Recurrent/history as noted below. Patient continues to note some dysarthria and her speech at times. Not really full on expressive aphasia but some dysarthric speech. No focal symptoms otherwise
neurologically on exam. CT angiogram images reviewed. Right carotid endarterectomy site is patent. She does have some common carotid plaque on that side. On the left side she has significant plaque at the bifurcation. However to my estimation
it seems less than 50% stenosis rendering.
Plan/ Appears to have had potentially a CVA type event. Appreciate neurology evaluation will defer to them regarding definitive management of his CVA. In the meanwhile we will obtain carotid duplexes to confirm less than 50% stenosis on the left
side (if felt to be greater than 50% by duplex, then may benefit from carotid revascularization). Will obtain echocardiogram as well to rule out cardioembolic source. May require MRI, will defer to neurology for now.
Original Note:
Update Note
Progress Note Update
Notified via TT by HOSE WRAPPER that patient had acute onset of thick dysarthric speech when she awoke from a short nap, immediately responded to bedside. On exam patient is AAOx3, in no apparent distress, resting in bed comfortably, BP stable, moves BL
UE and LE with equal strength, no dyspnea, no aphasia, face symmetrical, and tongue midline. Can appreciate slight dysarthria in her speech. Both patient and nurse state speech has improved over the past few minutes but has not fully returned to
baseline. Denies FONG, vision loss/changes, unilateral weakness, aphasia, or extremity paraesthesia. She does endorse tip of her tongue with a numbness sensation. Stroke alert activated and nutritional chemist neurologist updated on symptom presentation. score caller
surgeon Dr. Arron Gonzalez updated on patient PE and ROS, he agrees with plan.
--- NOTE | 2025-09-02 13:57 | CM ---
Initial assessment completed with patient who lives alone in a 1 story trailer with ramp to enter. FISHER SEAL patient was independent in ambulation with 4 prong cane for short distances , RW or rollator for longer distances. Has CPAP. No other DME. Does
drive. No in-home services. Does have HC-POA. No VA benefits. No psychiatric hospitalizations. PCP is Dr. Nilda Beltre. Pharmacy is [facility] on [address] in [place]. Discharge POC: Anticipate Home with [facility]. Jarrod will be staying with patient after
discharge.
--- NOTE | 2025-09-02 14:20 | PTCARENOTE ---
Patient assessed at 1200, no issues reported- patient then took a nap in bed. Woke patient at 1300 for hourly neurovasc assessment, patient reported numbness in tongue with mildly slurred speech. Vascular team made aware, stroke alert called. CT
brain ordered and obtained. Neuro and vascular at bedside assessing patient- patient not a candidate for TNK or thrombectomy. Slurred speech resolving, however mild dysarthria still noted. NIH documented in flowsheet. Speech therapy consult place.
Care ongoing.
--- NOTE | 2025-09-02 14:23 | W.PN.INTV ---
Today's Communication / Plan
Recommendations
- Resume nightly CPAP
- Neurochecks as ordered
- Follow-up labs in a.m.
Assessment
-
Patient is a 85-year-old female with known history of peripheral vascular disease and carotid artery stenosis status post carotid endarterectomy in the past who follows up with vascular surgery as outpatient for worsening claudication symptoms.
Reportedly right leg more affected than leg. Workup as outpatient was suggestive of severe peripheral vascular disease and patient was brought to the OR for revascularization. Postprocedure, patient was admitted to ICU for close monitoring.
Assessment Manager consultation was requested for further input.
Patient is a 85-year-old female with chronic limb ischemia, s/p aortoiliac stent grafting for severely calcified aortoiliac occlusive disease, loon angioplasty and stenting of left iliac bifurcation and proximal external iliac artery, bilateral
common femoral endarterectomies with profundoplasty's and patch angioplasty, by vascular surgery service, POD # 1
09/02 overview: Patient intermittently required Cardene infusion, currently off Cardene infusion. Saturating 100% on 2 L supplemental oxygen. Creatinine noted to slightly go up at 1.1. 1 episode of nausea and vomiting overnight. Current MAP of
84, not requiring any pressor support
Continue observation following procedure
Follow neurovascular checks per protocol
ASA, Plavix and statin on board
Follow BP monitoring and parameters as set by primary team
Cardiac history reviewed
Monitor on telemetry
Pain control per protocol
RASS goal 0
No prior history of pulmonary disease, no prior h/o smoking
CXR reviewed indicating no acute disease
No prior PFTs for review
Encouraged IS
Diet advancement per protocol
Aspiration precautions
GI prophylaxis: Protonix
Cr slightly increased at 1.1, patient received 500 mL bolus. Follow-up labs in a.m.
Critical I/Os
Void trials
Replete electrolytes as needed
No signs/symptoms suspicious for infectious etiology at this time
Will observe off antibiotics for now
Follow temperatures/CBC
Hb and platelets postoperatively stable
DVT prophylaxis: Subcu heparin.
Other medical diagnoses:
- Hypertension
- Hyperlipidemia
- Chronic GERD
- Osteoporosis
- History of carotid artery disease, status post carotid endarterectomy in 08/2022.
- H/o Aortic stenosis, moderate. Follows up with Cardiology as o/p
- Dysarthria 09/02. ?TIA. Minimal persistent symptoms. Stroke alert was called. CT, CTA without evidence of acute change. Neurology service on case. Patient currently on aspirin, Plavix and statins. Likely will need MRI for further evaluation
Critical Care time [36] mins -- The patient is admitted for acute critical illness for the treatment of vital organ failure and/or prevention of further life-threatening conditions. Total care includes time spent in review of history, physical exam,
medications, hemodynamic/ventilator parameters, laboratory data, imaging and discussion with house staff, pharmacy, respiratory therapy, endoscopic technician, and nursing
Data:
CXR 08/2025: 1. Clear lungs.
2. No significant change compared to prior study.
ECHO 05/2025: Normal left ventricular size and function. Normal regional wall motion. Mild
concentric left ventricular hypertrophy. LV ejection fraction is 58% by
volumetric assessment. Diastolic function indeterminate.
Thickened mitral valve leaflets with decreased leaflet excursion. Mitral
annular calcification. There is likely mild mitral stenosis with mean gradient
of 4 mmHg and mitral valve area 2.3 cm2. There is at least moderate mitral
regurgitation which may have been underestimated due to mitral annular
calcification.
Indexed LA volume is moderately abnormal (42-48 mL/m2).
Trileaflet aortic valve. Thickened and calcified aortic valve with restricted
leaflet motion. Moderate aortic stenosis. Peak/mean gradients across the aortic
valve are 38/20 mmHg. Using an LVOT diameter of 1.9 cm, the aortic valve by the
Continuity equation is calculated at 1.4 cm2. Mild aortic regurgitation.
Tricuspid valve opens normally. Mild tricuspid regurgitation. Estimated
pulmonary artery pressure of 34 mmHg. Assuming a right atrial pressure of 3
mmHg.
Dilated right atrium.
Normal right ventricular size and function.
Since echo August 2022, there is moderate aortic stenosis, MR has worsened
from mild to at least moderate and there is mild mitral stenosis.
Lexiscan 08/2022: Negative for ischemia
Subjective Dataa
Subjective Data
Date of Service:
Date of Service: September 02, 2025
Subjective:
Patient comfortable lying in bed in no acute distress
Review of Systems
Genitourinary: Other (All 14 systems reviewed and negative except as stated above in the history of present illness.)
Objective Data
Data Reviewed
Vital Signs / I&O / Oxygen:
Vital Signs
Temp Pulse Resp BP Pulse Ox
99 F 103 19 144/51 100
09/02/25 11:13 09/02/25 07:50 09/02/25 06:15 09/02/25 07:50 09/02/25 08:00
Intake and Output
09/01/25 09/02/25 09/03/25
06:59 06:59 06:59
Intake Total 1597.5 / 1702.5 1162.5 / 1162.5
Output Total 1140 / 1170 505 / 505
Balance 457.5 / 532.5 657.5 / 657.5
SaO2 100
Nasal Cannula flow liters per 2
minute
Physical Exam
General: Comfortable
HEENT: Normocephalic
Cardiovascular: S1-S2
Respiratory: Clear
GI: Soft and Non Distended
Neurology: Awake and Alert
Skin: Warm
Labs/Micro/Reports
Lab Data
09/02/25 04:09
09/02/25 04:09
Laboratory Results
09/01/25 09/02/25
20:09 04:09
PT 14.8 H 14.4
INR 1.13 1.09
APTT 32.5 29.5
--- NOTE | 2025-09-02 15:55 | PTOTSP ---
Dysphagia Evaluation:
Pt presents w/ acute dysarthria and tongue numbness after 09/01/25 revascularization operation. Stroke alert called. Negative findings on 09/[address] Due to increased fatigue during mastication of solids, it is recommended that pt is placed on
IDDSI 6 Soft and Bite Size, Thins. ST will F/U to monitor
1. IDDSI 6 Soft and Bite Size, Thins
2. Medications as best tolerated
3. Partial assistance/supervision w/ meals
4. Strategies: Single sips/bites, slow rate, alternating liquids and solids, GERD
5. F/U w/ ST to monitor diet-level tolerance, trial diet-level advancements, and provide strategies for dysarthric speech.
[2025-09-02] MEDS: NSS IV (16:51)
[2025-09-02 18:57] LABS: Ferritin 88.7 ng/ml (11.1-264.0)
[2025-09-02 19:28] LABS: Folate 18.3 ng/ml (2.76-20); Vitamin B12 427 pg/ml (239-931)
[2025-09-02] MEDS: MYLICON 80 MG PO (22:00)
[2025-09-03] VITALS (18 sets, daily range): BP systolic 105–143; BP diastolic 39–75; BMI 38.7
[2025-09-03] MEDS: HEPARIN 5000 UNITS SC ×3 (00:45→16:44)
[2025-09-03] MEDS: NSS 1000 IV ×3 (02:30→21:05)
--- NOTE | 2025-09-03 04:10 | PTCARENOTE ---
Initial assessment as documented. Pt states that speech is back to baseline and denies tongue numbness. B/L DP and PT pulses present with doppler. B/L groin MATTHEW dressings intact-small amount of shadowing, flashing green. RUE edema--weeping from
prior IV site, elevated. Denies pain. Safe environment maintained, pt repositioned q2h.
[2025-09-03 05:57] LABS: ALT (SGPT) 21 U/L (0-35); AST (SGOT) 87 U/L (14-36); Albumin 2.7 g/dl (3.5-5.0); Alkaline Phosphatase 35 U/L (38-126); Blood Urea Nitrogen 16 mg/dl (7-17); Calcium 7.4 mg/dl (8.4-10.2); Carbon Dioxide 25 mmol/L (22-30); Chloride 106 mmol/L (98-107); Estimated Creatinine Clearance 29 ml/min; Glucose 88 mg/dl (70-99); HDL Cholesterol 76 mg/dl; LDL Cholesterol, Calculated 22 mg/dl; Potassium 3.8 mmol/L (3.5-5.1); Sodium 133 mmol/L (135-145); Total Protein 5.0 g/dl (6.3-8.2); Very Low Density Lipoprotein 9 mg/dl (0-30); eGFR 40.05
[2025-09-03 06:30] LABS: Hematocrit 24.6 % (37.0-47.0); Hemoglobin 8.0 g/dL (12.0-16.0); Mean Corp Hgb Conc. 32.5 g/dL (33.0-37.0); Mean Corpuscular Volume 105.6 fL (81.0-99.0); Platelet Count 140 10^3/uL (130-400); Red Cell Dist. Width 13.1 % (11.5-14.5)
[2025-09-03 07:14] LABS: Nucleated Red Blood Cells % 0 %
[2025-09-03] MEDS: CALAN EXTENDED RELEASE 240 MG PO (07:40)
[2025-09-03] MEDS: METAMUCIL, KONSYL 1 PACKET PO (07:40)
[2025-09-03] MEDS: LIPITOR 80 MG PO (07:40)
[2025-09-03] MEDS: PLAVIX 75 MG PO (07:41)
[2025-09-03] MEDS: LOW STRENGTH ASPIRIN 81 MG PO (07:41)
[2025-09-03] MEDS: ZESTRIL 20 MG PO (07:41)
[2025-09-03] MEDS: THERAGRAN 1 TABLET PO (07:42)
[2025-09-03] MEDS: ORETIC 25 MG PO (07:42)
[2025-09-03] MEDS: PROTONIX 40 MG PO (07:42)
[2025-09-03] MEDS: OSCAL 500 + D 500 MG PO (07:43)
--- NOTE | 2025-09-03 07:53 | W.PN.VS ---
Addendum entered and electronically signed by Arron Gonzalez MD 09/03/25 14:13:
Seen and examined with DEBURRER's earlier this a.m. This is a late entry. Agree with findings and plan as discussed and noted below.
Original Note:
Today's Communication / Plan
-
patient seen and examined at bedside with Dr. Arron Gonzalez, below plan reviewed with attending.
Assessment/Plan
-
Postop day 2
1. Intravascular lithotripsy to the distal abdominal aorta (12 mm x 30 mm Shockwave L6)
2. Intravascular lithotripsy to the left common iliac artery and external iliac artery (9 mm x 30 mm Shockwave L6)
3. Intravascular lithotripsy to the right common iliac artery and external iliac artery (9 mm x 30 mm shockwave L6)
4. Aortoiliac stent grafting using Endologix AFX device for severely calcified aortoiliac occlusive disease (22�60/13�40 AFX main body; 25�75 suprarenal extension)
5. Balloon angioplasty and stenting of left iliac bifurcation and proximal external iliac artery (overlapping express LD stents 10 mm x 37 mm distal common iliac artery, 9 mm x 37 mm proximal external iliac artery)
6. BILATERAL common femoral endarterectomies with profundoplasties and patch angioplasty using bovine pericardium
7. Introduce wire and catheter to aorta from bilateral femoral artery access
8. Diagnostic aortobiiliac arteriogram
Plan:
Continue IV fluids given increased creatinine and decreased PO intake per patient
Continue Hernandez catheter for strict I&O
Continue home antihypertensive medications
Out of bed as tolerated
Continue ASA and Plavix, daniel check Xarelto for Compass protocol
Continue ICU
Defer to neurology team if MRI brain for further stroke workup is required
Continue speech therapy
Subjective Data
-
Date of Service: September 03, 2025
Patient seen and examined at bedside, reports speech is improving and overall feels better today. Denies nausea or vomiting but does note decrease appetite.
Objective Data
-
Vital Signs
Temp Pulse Resp BP Pulse Ox
98 F 99 17 143/44 100
09/03/25 03:14 09/03/25 07:42 09/02/25 20:45 09/03/25 07:42 09/02/25 21:30
Intake and Output
09/02/25 09/03/25 09/04/25
06:59 06:59 06:59
Intake Total 1597.5 / 1702.5 2402.5 / 2402.5
Output Total 1140 / 1170 1185 / 1185
Balance 457.5 / 532.5 1217.5 / 1217.5
Intake:
Oral fluids 40 / 40 240 / 240
IV fluids (Total) 1557.5 / 1662.5 1662.5 / 1662.5
Nicardipine 237.5 / 262.5 62.5 / 62.5
Normosol 200 / 200
Nss 1,000 ml @ 80 mls/hr IV . 1120 / 1200 1600 / 1600
[id number] MARCELO Rx#:[id number]
IV piggybacks 500 / 500
Output:
Urine, Hernandez 1140 / 1170 1185 / 1185
Lab Results
09/03/25 05:14
Calcium 7.4 mg/dl (8.4-10.2) L 09/03/25 05:14
Phosphorus 5.4 mg/dl (2.5-4.5) H 09/01/25 14:41
Magnesium 1.7 mg/dl (1.6-2.3) 09/01/25 14:41
Total Bilirubin 0.4 mg/dl (0.2-1.3) 09/03/25 05:14
AST 87 U/L (14-36) H 09/03/25 05:14
ALT 21 U/L (0-35) 09/03/25 05:14
Alkaline Phosphatase 35 U/L (38-126) L 09/03/25 05:14
Total Protein 5.0 g/dl (6.3-8.2) L 09/03/25 05:14
Albumin 2.7 g/dl (3.5-5.0) L 09/03/25 05:14
Physical Exam
-
AAO x 3
No tachypnea on room air
No tachycardia
Abdomen soft
Bilateral groin sites clean, dry, intact, soft, flat, MATTHEW CDI
Bilateral DP Dopplers audible
Bilateral feet warm and pink
BL UE and LE with equal strength
[2025-09-03 08:28] LABS: Glycohemoglobin (HgbA1c) 4.9 % (4.0-5.6)
--- NOTE | 2025-09-03 09:12 | PTCARENOTE ---
ROUND NOTES:
JACQUELINE --> Increase Crystalloids to 125 ml/hr.
Hold lisinopril + Hydrochlorothiazide.
Reassess noon time to see if stability promotes downgrade out of icu.
--- NOTE | 2025-09-03 12:19 | W.PN.INTV ---
Today's Communication / Plan
Recommendations
- Hold hydrochlorothiazide and lisinopril in view of acute kidney injury
- Decrease IV fluids to 125 mL/h
- Follow-up renal function labs in a.m.
- Patient transferring out of ICU. Stove Mechanic service will sign off, please call as needed
Assessment
-
Patient is a 85-year-old female with known history of peripheral vascular disease and carotid artery stenosis status post carotid endarterectomy in the past who follows up with vascular surgery as outpatient for worsening claudication symptoms.
Reportedly right leg more affected than leg. Workup as outpatient was suggestive of severe peripheral vascular disease and patient was brought to the OR for revascularization. Postprocedure, patient was admitted to ICU for close monitoring.
Stove Mechanic consultation was requested for further input.
Patient is a 85-year-old female with chronic limb ischemia, s/p aortoiliac stent grafting for severely calcified aortoiliac occlusive disease, loon angioplasty and stenting of left iliac bifurcation and proximal external iliac artery, bilateral
common femoral endarterectomies with profundoplasty's and patch angioplasty, by vascular surgery service, POD # 2
09/03 overview: Patient off Cardene infusion. Not on any pressors. Saturating well on room air. IV fluids infusing. Creatinine went up further to 1.3 today. NIH is 0
Continue observation following procedure
Follow neurovascular checks per protocol
ASA, Plavix and statin on board
Follow BP monitoring and parameters as set by primary team
Cardiac history reviewed
Monitor on telemetry
Pain control per protocol
RASS goal 0
No prior history of pulmonary disease, no prior h/o smoking
CXR reviewed indicating no acute disease
No prior PFTs for review
Encouraged IS
Diet advancement per protocol
Aspiration precautions
GI prophylaxis: Protonix
Cr further increased at 1.3, hold lisinopril and HCTZ. Increase IVF to 125 ml per hour. Labs in AM.
Critical I/Os
Void trials
Replete electrolytes as needed
No signs/symptoms suspicious for infectious etiology at this time
Will observe off antibiotics for now
Follow temperatures/CBC
Hb and platelets postoperatively stable
DVT prophylaxis: Subcu heparin.
Other medical diagnoses:
- Hypertension
- Hyperlipidemia
- Chronic GERD
- Osteoporosis
- History of carotid artery disease, status post carotid endarterectomy in 08/2022.
- H/o Aortic stenosis, moderate. Follows up with Cardiology as o/p
- Dysarthria 09/02. ?TIA. Minimal persistent symptoms. Stroke alert was called. CT, CTA without evidence of acute change. Neurology service on case. Patient currently on aspirin, Plavix and statins. No further interventions needed per Neurology
service.
Critical Care time [32] mins -- The patient is admitted for acute critical illness for the treatment of vital organ failure and/or prevention of further life-threatening conditions. Total care includes time spent in review of history, physical exam,
medications, hemodynamic/ventilator parameters, laboratory data, imaging and discussion with house staff, pharmacy, respiratory therapy, security operations engineer, and nursing
Data:
CXR 08/2025: 1. Clear lungs.
2. No significant change compared to prior study.
ECHO 05/2025: Normal left ventricular size and function. Normal regional wall motion. Mild
concentric left ventricular hypertrophy. LV ejection fraction is 58% by
volumetric assessment. Diastolic function indeterminate.
Thickened mitral valve leaflets with decreased leaflet excursion. Mitral
annular calcification. There is likely mild mitral stenosis with mean gradient
of 4 mmHg and mitral valve area 2.3 cm2. There is at least moderate mitral
regurgitation which may have been underestimated due to mitral annular
calcification.
Indexed LA volume is moderately abnormal (42-48 mL/m2).
Trileaflet aortic valve. Thickened and calcified aortic valve with restricted
leaflet motion. Moderate aortic stenosis. Peak/mean gradients across the aortic
valve are 38/20 mmHg. Using an LVOT diameter of 1.9 cm, the aortic valve by the
Continuity equation is calculated at 1.4 cm2. Mild aortic regurgitation.
Tricuspid valve opens normally. Mild tricuspid regurgitation. Estimated
pulmonary artery pressure of 34 mmHg. Assuming a right atrial pressure of 3
mmHg.
Dilated right atrium.
Normal right ventricular size and function.
Since echo August 2022, there is moderate aortic stenosis, MR has worsened
from mild to at least moderate and there is mild mitral stenosis.
Lexiscan 08/2022: Negative for ischemia
Subjective Dataa
Subjective Data
Date of Service:
Date of Service: September 03, 2025
Subjective:
Patient comfortably lying in bed in no acute distress.
Review of Systems
Genitourinary: Other (All 14 systems reviewed and negative except as stated above in the history of present illness.)
Objective Data
Data Reviewed
Vital Signs / I&O / Oxygen:
Vital Signs
Temp Pulse Resp BP Pulse Ox
97.7 F 86 13 129/46 100
09/03/25 12:00 09/03/25 11:00 09/03/25 11:00 09/03/25 11:00 09/03/25 11:00
Intake and Output
09/02/25 09/03/25 09/04/25
06:59 06:59 06:59
Intake Total 1597.5 / 1702.5 2402.5 / 2542.5 895 / 895
Output Total 1140 / 1170 1185 / 1225 210 / 210
Balance 457.5 / 532.5 1217.5 / 1317.5 685 / 685
SaO2 100
Nasal Cannula flow liters per 2
minute
Physical Exam
General: Comfortable
HEENT: Normocephalic
Cardiovascular: S1-S2
Respiratory: Clear
GI: Soft and Non Distended
Neurology: Awake and Alert
Skin: Warm
Labs/Micro/Reports
Lab Data
09/03/25 05:14
--- NOTE | 2025-09-03 12:28 | PTCARENOTE ---
Pt. to be downgraded tele per eye dropper assembler/vasc surg.
[2025-09-03 12:33] LABS: Hematocrit 25.3 % (37.0-47.0); Hemoglobin 8.2 g/dL (12.0-16.0)
--- NOTE | 2025-09-03 15:04 | W.PN.NEURO.1 ---
Addendum entered and electronically signed by Johny Mendoza MD 09/03/25 19:28:
I have seen and examined the patient today and have discussed the assessment and the management plan with the nurse practitioner Liss Lema. I agree with nurse practitioner Liss Lema's note and given below is my assessment and plan.
The patient is a 85 years old female who underwent revascularization by vascular surgery and yesterday she had speech difficulty. She was not a candidate for thrombolytic therapy as her NIHSS was low and she was status post recent major surgery and
also there was no large vessel occlusion present on CTA of head and neck.
Today the patient is doing well and she thinks that her speech is back to her baseline. She does not have any gross focal weakness. She is alert and oriented x 3.
Continue dual antiplatelet therapy. She will also be on atorvastatin 80 mg daily.
Will sign off. Please call if you have any question.
Original Note:
Today's Communication / Plan
-
.
Neuro Assessment/Plan
Assessment
This is an 85-year-old female with significant peripheral artery disease followed by Vascular Surgery as an outpatient who has presented to the hospital on 09/01/25 for revascularization. She underwent b/l aortoiliac stenting and b/l femoral
endarterectomy and was at her baseline postoperatively. Today (09/02/25), nursing staff reports that she was at her baseline at 1200 when she went to take a nap. At 1300 they went to do her vascular assessment and noted that her speech was suddenly
dysarthric and she reported that the tip of her tongue felt numb. A stroke alert was activated and CT head, CTA head/neck were obtained and were unremarkable.
Symptoms have now completely resolved.
Uncertain etiology of symptoms; possibilities include TIA or metabolic disturbance in the setting of recent extensive vascular surgery and anesthesia.
Plan
-Continue DAPT with aspirin 81mg and clopidogrel 75mg daily.
-Do not see a role for further neurological imaging at this time as patient is back to her baseline.
-Goal normotension.
-NIHSS and neurological checks per unit guidelines.
-Provide patient/family with a stroke education packet.
-LDL goal <70. LDL is 22 Continue atorvastatin 80mg.
-Goal normoglycemia, hbA1c is 4.9.
-ST.
-DVT prophylaxis.
-Neurology will sign-off, please contact us with any concerns/questions.
Subjective/Objective
Subjective Data
Date of Service: September 03, 2025
No acute events overnight. Patient reports that her speech difficulty has completely resolved.
Objective Data
Vital Signs
Temp Pulse Resp BP Pulse Ox
97.7 F 78 17 111/39 99
09/03/25 12:00 09/03/25 13:00 09/03/25 13:00 09/03/25 13:00 09/03/25 12:00
Lab Results
09/03/25 12:15
09/03/25 05:14
PT 14.4 Sec (11.4-14.6) 09/02/25 04:09
INR 1.09 09/02/25 04:09
APTT 29.5 Sec (23.4-35.0) 09/02/25 04:09
Sodium 133 mmol/L (135-145) L 09/03/25 05:14
Potassium 3.8 mmol/L (3.5-5.1) 09/03/25 05:14
BUN 16 mg/dl (7-17) 09/03/25 05:14
Glucose 88 mg/dl (70-99) 09/03/25 05:14
Calcium 7.4 mg/dl (8.4-10.2) L 09/03/25 05:14
Phosphorus 5.4 mg/dl (2.5-4.5) H 09/01/25 14:41
LDL Cholesterol, Calc 22 mg/dl 09/03/25 05:14
Vitamin B12 427 pg/ml (239-931) 09/02/25 04:09
Patient Allergies
No Known Allergies Allergy (Verified 09/01/25 07:15)
LDL Level: <70, continue statin
Review of Systems
-
History Source: Patient
EENT: Negative Blurry Vision, Decreased Vision or Swallowing Difficulty
Neuro: Negative Dizzy, Headache, Weakness, Numbness, Ataxia, Tremors or Speech Problem
Physical Exam
-
General: Well Developed, Well Nourished and No Apparent Distress
Eyes: No Ptosis and PERRLA
HEENT: Normocephalic and Atraumatic
Neck: Full Range of Motion
Extended Neurological Exam
Mood & Affect: Mood Unremarkable and Affect Unremarkable
Attention Span & Concentration: Awake, Alert, Interactive and No Difficulty with 2 Step Request
Memory: Unremarkable and Able to Recall
Tremor: Hand Tremor Absent and Head Tremor Absent
Involuntary Movement: None
Speech: Quality Unremarkable, Quantity Unremarkable and Rate of Production Unremarkable
Cranial Nerve II: Left Eye: Pupillary Reactivity Unremarkable, Pupillary Size Unremarkable and Visual Alanis Intact
Cranial Nerve II: Right Eye: Pupillary Reactivity Unremarkable, Pupillary Size Unremarkable and Visual Alanis Intact
Cranial Nerves III, IV, : Extraocular Movement: Extraocular Movement Full in all Directions
Cranial Nerve VII: Facial Symmetry: Normal Facial Symmetry
Cranial Nerve VIII: Hearing: Unremarkable Hearing to Normal Conversational Volume
Cranial Nerve XII: Tongue Protusion: Midline
Muscle Strength, Overall: Full in Upper Extremities and Other (BLE 4/5 due to pain)
Muscle Bulk & Tone: Bulk Unremarkable and Tone Unremarkable
Pronator Drift: No Drift in Upper Extremities and No Drift in Lower Extremities
Touch Sensation: Double Simultaneous Stimulation Unremarkable
Coordination: Bcjrpk-[id number]-xbveos Testing Unremarkable
Modified Donna Score (MRS)
-
Modified [place] Scale (mRS): No symptoms
Score: 0
Data Reviewed
-
CT-A: Report Reviewed and Image Reviewed
CT Head: Report Reviewed and Image Reviewed
Labs: Report Reviewed
Lipid Profile: Report Reviewed
HgbA1C: Report Reviewed
Reviewed with: Physician and Patient
Medications
-
Active Medications
Generic Name Dose Route Start Last Admin
Trade Name Freq PRN Reason Stop Dose Admin
Acetaminophen 650 mg 09/01/25 13:30 09/02/25 11:24
Acetaminophen 325 Mg Tablet PO 09/29/25 13:29 650 mg
Q4HPRN PRN Administration
mild pain or temp >/= 100.4F
Aspirin 81 mg 09/02/25 08:00 09/03/25 07:41
Aspirin 81 Mg Chewable Tablet PO 09/30/25 07:59 81 mg
DAILY MARCELO Administration
Atorvastatin Calcium 80 mg 09/02/25 08:00 09/03/25 07:40
Atorvastatin (Lipitor) 80 Mg Tablet PO 09/30/25 07:59 80 mg
DAILY MARCELO Administration
Bisacodyl 10 mg 09/01/25 13:30
Bisacodyl 10 Mg Rectal Suppository RECTAL 09/29/25 13:29
DAILYPRN PRN
constipation
Calcium/Vitamin D 500 mg 09/02/25 08:00 09/03/25 07:43
Calcium Carbonate 500 Mg/Vitamin D 5 Mcg (200 Units) Tablet PO 09/30/25 07:59 500 mg
DAILY MARCELO Administration
Clopidogrel Bisulfate 75 mg 09/02/25 08:00 09/03/25 07:41
Clopidogrel 75 Mg Tablet PO 09/30/25 07:59 75 mg
DAILY MARCELO Administration
Heparin Sodium 5,000 units 09/01/25 16:00 09/03/25 07:43
Heparin 5,000 Units/Ml 1 Ml Vial SC 09/29/25 15:59 5,000 units
Q8 MARCELO Administration
Hydrochlorothiazide 25 mg 09/02/25 08:00 09/03/25 07:42
Hydrochlorothiazide 25 Mg Tablet PO 09/30/25 07:59 25 mg
On Hold: 09/03/25 09:07 DAILY MARCELO Administration
Hydromorphone HCl 0.5 mg 09/01/25 13:30
Hydromorphone 0.5 Mg/0.5 Ml Syringe IV 09/15/25 13:29
Q4HPRN PRN
severe pain
Sodium Chloride 1,000 mls @ 125 mls/hr 09/01/25 13:30 09/03/25 02:30
Nss IV 1,000 mls
.Q8H MARCELO Administration
Lisinopril 20 mg 09/02/25 08:00 09/03/25 07:41
Lisinopril 20 Mg Tablet PO 09/30/25 07:59 20 mg
On Hold: 09/03/25 09:07 DAILY MARCELO Administration
Multivitamins Therapeutic 1 tablet 09/02/25 08:00 09/03/25 07:42
Multivitamin Tablet PO 09/30/25 07:59 1 tablet
DAILY MARCELO Administration
Ondansetron HCl 4 mg 09/02/25 03:01 09/02/25 03:06
Ondansetron 4 Mg/2 Ml Vial IV 09/30/25 03:00 4 mg
Q6HPRN PRN Administration
NAUSEA/VOMITING
Oxycodone HCl 5 mg 09/01/25 13:30
Oxycodone 5 Mg Regular Release Tablet PO 09/15/25 13:29
Q4HPRN PRN
moderate pain
Pantoprazole Sodium 40 mg 09/02/25 08:00 09/03/25 07:42
Pantoprazole 40 Mg Delayed Release Tablet PO 09/30/25 07:59 40 mg
DAILY MARCELO Administration
Psyllium Hydrophilic Mucilloid 1 packet 09/02/25 08:00 09/03/25 07:40
Psyllium Packet PO 09/30/25 07:59 1 packet
DAILY MARCELO Administration
Sodium Chloride 0 flush 09/01/25 16:00
Sodium Chloride 0.9% (Flush) Syringe IV 09/29/25 15:59
PER PROTOCOL MARCELO
Verapamil HCl 240 mg 09/02/25 08:00 09/03/25 07:40
Verapamil 240 Mg (Extended Release) Tablet PO 09/30/25 07:59 240 mg
DAILY MARCELO Administration
Home Medications
�Medication �Instructions �Recorded
acetaminophen 500 mg tablet 500 mg PO PRN PRN pain 05/18/21
(Tylenol Extra Strength)
calcium 333 mg-vit D3 133 1 ea PO DAILY Supplement 05/18/21
unit-magnesium 133 mg-zinc 5 mg
tablet (Cruz Mag Zinc Plus D3)
lisinopril 10 mg tablet 20 mg PO DAILY Blood Pressure 05/18/21
verapamil 240 mg 24 hr 240 mg PO DAILY Blood Pressure 05/18/21
capsule,extended release
atorvastatin 80 mg tablet 80 mg PO DAILY High Cholesterol 09/07/22
lansoprazole 15 mg capsule,delayed 15 mg PO Q72H Gastrointestinal 09/07/22
release Issue
adktpmts-oam-nqoar ac 400 1 tab PO DAILY Supplement 09/07/22
mcg-calcium carb 500 mg-vit K1 20
mcg tablet (Women's 50 Plus
Multivitamin)
diclofenac sodium 1 % topical gel 1 ea topical PRN PRN B/L KNEE PAIN 09/18/22
denosumab 60 mg/mL subcutaneous 60 mg SC [id number] 08/18/25
syringe (Prolia)
hydrochlorothiazide 25 mg tablet 25 mg PO DAILY Blood Pressure 08/18/25
psyllium 1 tsp PO DAILY Constipation 08/18/25
aspirin 81 mg chewable tablet 81 mg PO DAILY Blood Clot 09/01/25
Prevention/Tx
mupirocin 2 % topical ointment 1 applic topical BID groin wounds 09/01/25
--- NOTE | 2025-09-03 15:23 | CM ---
JACQUELINE, medication adjustments, follow-up renal lab values, to be transferred out of ICU. Discharged POC: Home with PAT MANRIQUE RN. Niece will be staying with patient after discharge.
--- NOTE | 2025-09-03 19:35 | PTCARENOTE ---
Pt arrived to 2S @1925. Completed handoff at bedside with ICU nurse Cooper. Wounds and drains CDI (see documentation). VSS. Pt complained of FONG. Medications administered. Bed in lowest position. Call dickson within reach. Care ongoing.
--- NOTE | 2025-09-03 20:05 | VATNOTE ---
upon rounds this molly after pt transfered from ICU, was checking IV sites and noted right arm AC area with very large bruised and warm to touch swelling. Pt stated 'this was from a blow out, with Ct scan.'; Area has no pain but when touched, does
hurt pt. Since warm, ice applied. Encouraged pt. to have MD to see in am. PCAide Jean Baptiste, informed of above care.
[2025-09-03] MEDS: TYLENOL 650 MG PO (21:12)
[2025-09-04] VITALS (9 sets, daily range): BP systolic 122–156; BP diastolic 45–78; PULSE 88
[2025-09-04] MEDS: HEPARIN 5000 UNITS SC ×3 (00:02→16:20)
[2025-09-04] MEDS: NSS 1000 IV ×2 (04:59→16:23)
[2025-09-04] MEDS: CALAN EXTENDED RELEASE 240 MG PO (08:16)
[2025-09-04] MEDS: LIPITOR 80 MG PO (08:16)
[2025-09-04] MEDS: THERAGRAN 1 TABLET PO (08:17)
[2025-09-04] MEDS: OSCAL 500 + D 500 MG PO (08:17)
[2025-09-04] MEDS: LOW STRENGTH ASPIRIN 81 MG PO (08:17)
[2025-09-04] MEDS: PROTONIX 40 MG PO (08:17)
[2025-09-04] MEDS: METAMUCIL, KONSYL 1 PACKET PO (08:17)
[2025-09-04] MEDS: PLAVIX 75 MG PO (08:17)
[2025-09-04 09:24] LABS: Hematocrit 22.1 % (37.0-47.0); Hemoglobin 7.7 g/dL (12.0-16.0); Mean Corp Hgb Conc. 34.8 g/dL (33.0-37.0); Mean Corpuscular Volume 102.3 fL (81.0-99.0); Platelet Count 143 10^3/uL (130-400); Red Cell Dist. Width 12.8 % (11.5-14.5)
[2025-09-04 09:51] LABS: ALT (SGPT) 19 U/L (0-35); AST (SGOT) 60 U/L (14-36); Albumin 2.6 g/dl (3.5-5.0); Alkaline Phosphatase 49 U/L (38-126); Blood Urea Nitrogen 24 mg/dl (7-17); Calcium 7.4 mg/dl (8.4-10.2); Carbon Dioxide 20 mmol/L (22-30); Chloride 105 mmol/L (98-107); Estimated Creatinine Clearance 25 ml/min; Glucose 84 mg/dl (70-99); Potassium 3.3 mmol/L (3.5-5.1); Sodium 130 mmol/L (135-145); Total Protein 5.1 g/dl (6.3-8.2); eGFR 33.73
--- NOTE | 2025-09-04 09:58 | W.PN.VS ---
Addendum entered and electronically signed by Clinton Hernandez III, MD 09/04/25 11:35:
This patient was seen and examined in collaboration with JORGE Hunter. I agree with the history and physical exam as well as the assessment and plan. I have the following additions:
Nonfocal this morning
No abdominal pain
Poor appetite
Creatinine up just a bit this morning again to 1.5
Hemoglobin 7.7
Remains on IV fluids with acceptable hourly urine output (Hernandez catheter in place).
Persistent leukocytosis but afebrile
Non toxic appearing
Sitting up in bed with no complaints
Abdomen is obese but soft and nontender
Pannus large and completely covering the groin incisions
PICOs are intact and holding negative pressure
Plan for physical therapy evaluation today
Antiplatelet therapy
Will change groin dressings today
Encouraged nutrition
Continue IV fluids
Monitor creatinine
Transfuse 1 unit of blood and recheck posttransfusion CBC
Will send UA and obtain chest x-ray for persistent leukocytosis. Will check groin incisions today. Blood cultures if spikes of fever. No obvious infectious source identified.
Signed:
Clinton Hernandez III, MD
Vascular Surgery
[facility]
Original Note:
Today's Communication / Plan
-
Seen and assessed with Dr. Hernandez
Assessment/Plan
-
Postop day 3
1. Intravascular lithotripsy to the distal abdominal aorta (12 mm x 30 mm Shockwave L6)
2. Intravascular lithotripsy to the left common iliac artery and external iliac artery (9 mm x 30 mm Shockwave L6)
3. Intravascular lithotripsy to the right common iliac artery and external iliac artery (9 mm x 30 mm shockwave L6)
4. Aortoiliac stent grafting using Endologix AFX device for severely calcified aortoiliac occlusive disease (22�60/13�40 AFX main body; 25�75 suprarenal extension)
5. Balloon angioplasty and stenting of left iliac bifurcation and proximal external iliac artery (overlapping express LD stents 10 mm x 37 mm distal common iliac artery, 9 mm x 37 mm proximal external iliac artery)
6. BILATERAL common femoral endarterectomies with profundoplasties and patch angioplasty using bovine pericardium
7. Introduce wire and catheter to aorta from bilateral femoral artery access
8. Diagnostic aortobiiliac arteriogram
Plan:
Continue IV fluids given increased creatinine and decreased PO intake per patient
Continue Hernandez catheter for strict I&O
Continue home antihypertensive medications
Out of bed as tolerated, physical therapy
Continue ASA and Plavix
Continue speech therapy
We will place new matthew dressings at discharge
Will add protein shakes for nutrition
Subjective Data
-
Date of Service: September 04, 2025
Patient seen at bedside this a.m. with Dr. Hernandez. Patient offers no complaints at this time. Resting comfortably in the bed. No events overnight.
Objective Data
-
Vital Signs
Temp Pulse Resp BP Pulse Ox
98.4 F 88 16 151/57 95
09/04/25 07:05 09/04/25 07:05 09/04/25 07:05 09/04/25 07:05 09/04/25 07:05
Intake and Output
09/03/25 09/04/25 09/05/25
06:59 06:59 06:59
Intake Total 2402.5 / 2542.5 2900 / 2900
Output Total 1185 / 1225 880 / 880
Balance 1217.5 / 1317.5 2019 / 2019
Intake:
Oral fluids 240 / 300 740 / 740
IV fluids (Total) 1662.5 / 1742.5 2160 / 2160
Nicardipine 62.5 / 62.5
Nss 1,000 ml @ 125 mls/hr IV . 1600 / 1680 910 / 910
Q8H MARCELO Rx#:[id number]
IV piggybacks 500 / 500
Output:
Urine, Hernandez 1185 / 1225 880 / 880
Lab Results
09/04/25 07:48
09/04/25 07:48
Calcium 7.4 mg/dl (8.4-10.2) L 09/04/25 07:48
Phosphorus 5.4 mg/dl (2.5-4.5) H 09/01/25 14:41
Magnesium 1.7 mg/dl (1.6-2.3) 09/01/25 14:41
Total Bilirubin 0.5 mg/dl (0.2-1.3) 09/04/25 07:48
AST 60 U/L (14-36) H 09/04/25 07:48
ALT 19 U/L (0-35) 09/04/25 07:48
Alkaline Phosphatase 49 U/L (38-126) 09/04/25 07:48
Total Protein 5.1 g/dl (6.3-8.2) L 09/04/25 07:48
Albumin 2.6 g/dl (3.5-5.0) L 09/04/25 07:48
Physical Exam
-
AAO x 3
No tachypnea on room air
No tachycardia
Abdomen soft
Bilateral groin sites clean, dry, intact, soft, flat, MATTHEW CDI
Bilateral DP Dopplers audible
Bilateral feet warm and pink
BL UE and LE with equal strength
[2025-09-04 10:05] LABS: Nucleated Red Blood Cells % 0 %
[2025-09-04 12:54] LABS: Urine Character Slightly Cloudy (Clear)
[2025-09-04] MEDS: KLOR-CON 20 MEQ PO (13:23)
[2025-09-04 13:25] LABS: Urine White Cell >100 /HPF (0-5)
--- NOTE | 2025-09-04 15:45 | CM ---
CM following re: discharge planning.
Reviewed pt's chart, met with pt and pt's niece at bedside.
Pt is Postop day 3 vascular surgery, continue supportive care.
PT and OT evaluations noted - SNF vs home PT recommended. pt stated she needs help and niece stated she will help with cooking, cleaning but she cannot help with transferring. Pt requested SNF to improve functional ability. A list of SNFs provided.
pt preferred [facility] or [facility]. A referral to above SNFs made. Awaiting for determination.
D/C plan: preferred SNF: [facility] or [facility].
[2025-09-04] MEDS: ZOSYN 50 IV (19:44)
[2025-09-05] MEDS: ZOSYN 50 IV ×5 (00:34→23:13)
[2025-09-05] MEDS: HEPARIN 5000 UNITS SC ×4 (00:34→23:13)
--- NOTE | 2025-09-05 02:13 | PTCARENOTE ---
Morning labs showed pt hgb of 7.7; 1 unit of PRBC's transfused @ 2107 (see TAR documentation). VSS. Pt comfortable and fell asleep with CPAP on.
[2025-09-05 03:20] VITALS: BP 109/48
[2025-09-05] MEDS: NSS 1000 IV ×3 (04:00→21:36)
[2025-09-05 06:18] LABS: Hematocrit 24.7 % (37.0-47.0); Hemoglobin 8.7 g/dL (12.0-16.0); Mean Corp Hgb Conc. 35.2 g/dL (33.0-37.0); Mean Corpuscular Volume 98.4 fL (81.0-99.0); Platelet Count 131 10^3/uL (130-400); Red Cell Dist. Width 14.0 % (11.5-14.5)
[2025-09-05 06:52] LABS: Blood Urea Nitrogen 28 mg/dl (7-17); Calcium 7.1 mg/dl (8.4-10.2); Carbon Dioxide 18 mmol/L (22-30); Chloride 105 mmol/L (98-107); Estimated Creatinine Clearance 24 ml/min; Glucose 79 mg/dl (70-99); Potassium 3.7 mmol/L (3.5-5.1); Sodium 130 mmol/L (135-145); eGFR 31.21
[2025-09-05 07:55] VITALS: BP 159/54
--- NOTE | 2025-09-05 08:21 | W.PN.VS ---
Addendum entered and electronically signed by Blanca Tinajero MD 09/05/25 11:47:
Agree with below. Feet warm, +DP signals bilaterally. MATTHEW in tact. Continue abx, PT/OT.
Original Note:
Today's Communication / Plan
-
Discussed with Dr. Tinajero
Assessment/Plan
-
Postop day 4
1. Intravascular lithotripsy to the distal abdominal aorta (12 mm x 30 mm Shockwave L6)
2. Intravascular lithotripsy to the left common iliac artery and external iliac artery (9 mm x 30 mm Shockwave L6)
3. Intravascular lithotripsy to the right common iliac artery and external iliac artery (9 mm x 30 mm shockwave L6)
4. Aortoiliac stent grafting using Endologix AFX device for severely calcified aortoiliac occlusive disease (22�60/13�40 AFX main body; 25�75 suprarenal extension)
5. Balloon angioplasty and stenting of left iliac bifurcation and proximal external iliac artery (overlapping express LD stents 10 mm x 37 mm distal common iliac artery, 9 mm x 37 mm proximal external iliac artery)
6. BILATERAL common femoral endarterectomies with profundoplasties and patch angioplasty using bovine pericardium
7. Introduce wire and catheter to aorta from bilateral femoral artery access
8. Diagnostic aortobiiliac arteriogram
Plan:
Hemoglobin stable
Antibiotics for possible pneumonia, urine culture pending-WBC 19 today
Continue IV fluids given increased creatinine (1.6 )and decreased PO intake per patient
Monitor urine output
Continue home antihypertensive medications
Out of bed as tolerated, physical therapy
Continue ASA and Plavix
Continue speech therapy
We will place new matthew dressings at discharge
Subjective Data
-
Date of Service: September 05, 2025
Patient seen resting comfortably in bed this morning. No events overnight.
Objective Data
-
Vital Signs
Temp Pulse Resp BP Pulse Ox
97.4 F 78 16 109/48 99
09/05/25 03:20 09/05/25 03:20 09/05/25 03:20 09/05/25 03:20 09/05/25 03:20
Intake and Output
09/04/25 09/05/25 09/06/25
06:59 06:59 06:59
Intake Total 2900 / 2900 2280 / 2280
Output Total 880 / 880
Balance 2019 / 2019 2280 / 2280
Intake:
Oral fluids 740 / 740 480 / 480
IV fluids (Total) 2160 / 2160 1200 / 1200
Nss 1,000 ml @ 125 mls/hr IV . 910 / 910
Q8H [facility] Rx#:[id number]
IV piggybacks 350 / 350
Blood Product Amount Infused ( 250 / 250
mL)
Packed Rbc Leukoreduced Unit 250 / 250
[id number]
Output:
Urine, Hernandez 880 / 880
Other:
How many times incontinent 1
MODERATE amount urine
Number of approximated SMALL 1
amounts of urine
Number of approximated LARGE 1
amounts of urine
Lab Results
09/05/25 05:24
09/05/25 05:24
Calcium 7.1 mg/dl (8.4-10.2) L 09/05/25 05:24
Phosphorus 5.4 mg/dl (2.5-4.5) H 09/01/25 14:41
Magnesium 1.7 mg/dl (1.6-2.3) 09/01/25 14:41
Total Bilirubin 0.5 mg/dl (0.2-1.3) 09/04/25 07:48
AST 60 U/L (14-36) H 09/04/25 07:48
ALT 19 U/L (0-35) 09/04/25 07:48
Alkaline Phosphatase 49 U/L (38-126) 09/04/25 07:48
Total Protein 5.1 g/dl (6.3-8.2) L 09/04/25 07:48
Albumin 2.6 g/dl (3.5-5.0) L 09/04/25 07:48
Physical Exam
-
AAO x 3
No tachypnea on room air
No tachycardia
Abdomen soft
Bilateral groin sites clean, dry, intact, soft, flat, MATTHEW CDI
Bilateral DP Dopplers audible
Bilateral feet warm and pink
[2025-09-05] MEDS: CALAN EXTENDED RELEASE 240 MG PO (09:09)
[2025-09-05] MEDS: LOW STRENGTH ASPIRIN 81 MG PO (09:09)
[2025-09-05] MEDS: THERAGRAN 1 TABLET PO (09:09)
[2025-09-05] MEDS: PROTONIX 40 MG PO (09:09)
[2025-09-05] MEDS: OSCAL 500 + D 500 MG PO (09:09)
[2025-09-05] MEDS: LIPITOR 80 MG PO (09:09)
[2025-09-05] MEDS: PLAVIX 75 MG PO (09:09)
[2025-09-05] MEDS: METAMUCIL, KONSYL 1 PACKET PO (09:10)
[2025-09-05 11:20] VITALS: BP 136/51
[2025-09-05 15:39] VITALS: BP 150/56
[2025-09-05 19:10] VITALS: BP 166/58
[2025-09-05 23:00] VITALS: BP 168/59
[2025-09-06 04:00] VITALS: BP 150/64
[2025-09-06] MEDS: ZOSYN 50 IV ×4 (05:27→23:57)
[2025-09-06] MEDS: NSS 1000 IV ×2 (06:22→17:34)
[2025-09-06 07:05] VITALS: BP 152/60
[2025-09-06 07:08] LABS: Hematocrit 25.7 % (37.0-47.0); Hemoglobin 8.8 g/dL (12.0-16.0); Mean Corp Hgb Conc. 34.2 g/dL (33.0-37.0); Mean Corpuscular Volume 103.2 fL (81.0-99.0); Platelet Count 159 10^3/uL (130-400); Red Cell Dist. Width 13.8 % (11.5-14.5)
[2025-09-06 07:24] LABS: Blood Urea Nitrogen 20 mg/dl (7-17); Calcium 7.0 mg/dl (8.4-10.2); Carbon Dioxide 18 mmol/L (22-30); Chloride 108 mmol/L (98-107); Estimated Creatinine Clearance 27 ml/min; Glucose 73 mg/dl (70-99); Potassium 3.4 mmol/L (3.5-5.1); Sodium 130 mmol/L (135-145); eGFR 36.64
--- NOTE | 2025-09-06 07:42 | W.PN.VS ---
Today's Communication / Plan
-
as above
Assessment/Plan
-
Postop day 5
1. Intravascular lithotripsy to the distal abdominal aorta (12 mm x 30 mm Shockwave L6)
2. Intravascular lithotripsy to the left common iliac artery and external iliac artery (9 mm x 30 mm Shockwave L6)
3. Intravascular lithotripsy to the right common iliac artery and external iliac artery (9 mm x 30 mm shockwave L6)
4. Aortoiliac stent grafting using Endologix AFX device for severely calcified aortoiliac occlusive disease (22�60/13�40 AFX main body; 25�75 suprarenal extension)
5. Balloon angioplasty and stenting of left iliac bifurcation and proximal external iliac artery (overlapping express LD stents 10 mm x 37 mm distal common iliac artery, 9 mm x 37 mm proximal external iliac artery)
6. BILATERAL common femoral endarterectomies with profundoplasties and patch angioplasty using bovine pericardium
7. Introduce wire and catheter to aorta from bilateral femoral artery access
8. Diagnostic aortobiiliac arteriogram
Plan:
Antibiotics for possible pneumonia, urine culture pending-WBC 14 today
Continue IV fluids given increased creatinine (1.4 )and decreased PO intake per patient
Monitor urine output
Continue home antihypertensive medications
Out of bed as tolerated, physical therapy
Continue ASA and Plavix
Continue speech therapy
We will place new janneth dressings at discharge
Subjective Data
-
Date of Service: September 06, 2025
No acute events. Feels well.
Objective Data
-
Vital Signs
Temp Pulse Resp BP Pulse Ox
98 F 86 18 150/64 97
09/06/25 04:00 09/06/25 04:00 09/06/25 04:00 09/06/25 04:00 09/06/25 04:00
Intake and Output
09/05/25 09/06/25 09/07/25
06:59 06:59 06:59
Intake Total 2280 / 2280 3975 / 3975
Balance 2280 / 2280 3975 / 3975
Intake:
Oral fluids 480 / 480 900 / 900
IV fluids (Total) 1200 / 1200 2875 / 2875
IV piggybacks 350 / 350 200 / 200
Blood Product Amount Infused ( 250 / 250
mL)
Packed Rbc Leukoreduced Unit 250 / 250
[id number]
Other:
How many times incontinent 1
MODERATE amount urine
How many times incontinent 1
SATURATED amount urine
Number of approximated SMALL 1
amounts of urine
Number of approximated MODERATE 6
amounts of urine
Number of approximated LARGE 1
amounts of urine
Lab Results
09/06/25 05:29
09/06/25 05:29
Calcium 7.0 mg/dl (8.4-10.2) L 09/06/25 05:29
Phosphorus 5.4 mg/dl (2.5-4.5) H 09/01/25 14:41
Magnesium 1.7 mg/dl (1.6-2.3) 09/01/25 14:41
Total Bilirubin 0.5 mg/dl (0.2-1.3) 09/04/25 07:48
AST 60 U/L (14-36) H 09/04/25 07:48
ALT 19 U/L (0-35) 09/04/25 07:48
Alkaline Phosphatase 49 U/L (38-126) 09/04/25 07:48
Total Protein 5.1 g/dl (6.3-8.2) L 09/04/25 07:48
Albumin 2.6 g/dl (3.5-5.0) L 09/04/25 07:48
Physical Exam
-
NAD
PICOs in place in groins
+DP signals bilaterally
[2025-09-06] MEDS: THERAGRAN 1 TABLET PO (09:33)
[2025-09-06] MEDS: OSCAL 500 + D 500 MG PO (09:33)
[2025-09-06] MEDS: CALAN EXTENDED RELEASE 240 MG PO (09:33)
[2025-09-06] MEDS: PROTONIX 40 MG PO (09:33)
[2025-09-06] MEDS: PLAVIX 75 MG PO (09:33)
[2025-09-06] MEDS: LIPITOR 80 MG PO (09:33)
[2025-09-06] MEDS: HEPARIN 5000 UNITS SC ×3 (09:34→23:58)
[2025-09-06] MEDS: LOW STRENGTH ASPIRIN 81 MG PO (09:34)
[2025-09-06] MEDS: METAMUCIL, KONSYL 1 PACKET PO (09:37)
[2025-09-06 16:13] VITALS: BP 149/54
--- NOTE | 2025-09-06 18:38 | VATNOTE ---
Right AC infiltrate remains with large firm area of ecchymosis, improved from yesterday, remains pain free. distal cms intact
[2025-09-06 23:15] VITALS: BP 149/58
[2025-09-07] MEDS: TYLENOL 650 MG PO (02:10)
[2025-09-07] MEDS: NSS 1000 IV (02:27)
[2025-09-07] MEDS: ZOSYN 50 IV ×3 (05:53→18:12)
[2025-09-07 06:26] LABS: Hematocrit 24.9 % (37.0-47.0); Hemoglobin 8.3 g/dL (12.0-16.0); Mean Corp Hgb Conc. 33.3 g/dL (33.0-37.0); Mean Corpuscular Volume 101.6 fL (81.0-99.0); Platelet Count 173 10^3/uL (130-400); Red Cell Dist. Width 13.7 % (11.5-14.5)
[2025-09-07 06:52] LABS: Blood Urea Nitrogen 15 mg/dl (7-17); Calcium 6.8 mg/dl (8.4-10.2); Carbon Dioxide 18 mmol/L (22-30); Chloride 110 mmol/L (98-107); Estimated Creatinine Clearance 32 ml/min; Glucose 71 mg/dl (70-99); Potassium 3.2 mmol/L (3.5-5.1); Sodium 133 mmol/L (135-145); eGFR 44.08
[2025-09-07 07:15] VITALS: BP 157/61
[2025-09-07] MEDS: KLOR-CON 20 MEQ PO ×2 (08:11→19:46)
[2025-09-07] MEDS: HEPARIN 5000 UNITS SC (08:11)
[2025-09-07] MEDS: METAMUCIL, KONSYL 1 PACKET PO (08:12)
[2025-09-07] MEDS: PROTONIX 40 MG PO (08:12)
[2025-09-07] MEDS: PLAVIX 75 MG PO (08:12)
[2025-09-07] MEDS: THERAGRAN 1 TABLET PO (08:12)
[2025-09-07] MEDS: LOW STRENGTH ASPIRIN 81 MG PO (08:12)
[2025-09-07] MEDS: OSCAL 500 + D 500 MG PO (08:12)
[2025-09-07] MEDS: LIPITOR 80 MG PO (08:12)
[2025-09-07] MEDS: CALAN EXTENDED RELEASE 240 MG PO (08:13)
[2025-09-07] MEDS: CALCIUM GLUCONATE 100 IV (08:18)
--- NOTE | 2025-09-07 10:01 | W.PN.VS ---
Addendum entered and electronically signed by Clinton Hernandez III, MD 09/07/25 12:38:
This patient was seen and examined in collaboration with JORGE Negrete. I agree with the history and physical exam as well as the assessment and plan. I have the following additions:
Doing very well
No complaints this morning
Afebrile
Leukocytosis improving
Creatinine better
Plan to change Matthew dressings today
Continue to work with PT
Placement
Signed:
Clinton Hernandez III, MD
Vascular Surgery
[facility]
Original Note:
Today's Communication / Plan
-
Patient seen and evaluated at bedside with Dr. Clinton Hernandez III, below plan reviewed with attending.
Assessment/Plan
-
Postop day 6
1. Intravascular lithotripsy to the distal abdominal aorta (12 mm x 30 mm Shockwave L6)
2. Intravascular lithotripsy to the left common iliac artery and external iliac artery (9 mm x 30 mm Shockwave L6)
3. Intravascular lithotripsy to the right common iliac artery and external iliac artery (9 mm x 30 mm shockwave L6)
4. Aortoiliac stent grafting using Endologix AFX device for severely calcified aortoiliac occlusive disease (22�60/13�40 AFX main body; 25�75 suprarenal extension)
5. Balloon angioplasty and stenting of left iliac bifurcation and proximal external iliac artery (overlapping express LD stents 10 mm x 37 mm distal common iliac artery, 9 mm x 37 mm proximal external iliac artery)
6. BILATERAL common femoral endarterectomies with profundoplasties and patch angioplasty using bovine pericardium
7. Introduce wire and catheter to aorta from bilateral femoral artery access
8. Diagnostic aortobiiliac arteriogram
Plan:
Continue antibiotics, leukocytosis improving, urine culture confirmed UTI, will transition to PO ABX when she is discharged to SNF
Creatine continues to improve now 1.2, IVF discontinued
Continue home antihypertensive medications
Out of bed as tolerated, physical therapy
Continue ASA and Plavix
Continue speech and physical therapy
We will place new matthew dressings today can stay on for one week
Cleared for discharge to SNF
Subjective Data
-
Date of Service: September 07, 2025
Patient seen and examined at bed, reports overall feeling much improved and has been walking to bathroom better then her prior 'shuffling.' Denies fever, chills, nausea, vomiting, fever, and chills. Reports tolerating PO intake without difficulty
but continues to have decreased appetite.
Objective Data
-
Vital Signs
Temp Pulse Resp BP Pulse Ox
98.3 F 81 16 157/61 95
09/07/25 07:15 09/07/25 08:13 09/07/25 07:15 09/07/25 08:13 09/07/25 07:15
Intake and Output
09/06/25 09/07/25 09/08/25
06:59 06:59 06:59
Intake Total 3975 / 3975 3455 / 3455 340 / 340
Balance 3975 / 3975 3455 / 3455 340 / 340
Intake:
Oral fluids 900 / 900 480 / 480 240 / 240
IV fluids (Total) 2875 / 2875 2875 / 2875
IV piggybacks 200 / 200 100 / 100 100 / 100
Other:
How many times incontinent 1
SATURATED amount urine
Number of approximated MODERATE 6 1 1
amounts of urine
Number of approximated LARGE 1
amounts of urine
Lab Results
09/07/25 05:22
09/07/25 05:22
Calcium 6.8 mg/dl (8.4-10.2) L* 09/07/25 05:22
Phosphorus 5.4 mg/dl (2.5-4.5) H 09/01/25 14:41
Magnesium 1.7 mg/dl (1.6-2.3) 09/01/25 14:41
Total Bilirubin 0.5 mg/dl (0.2-1.3) 09/04/25 07:48
AST 60 U/L (14-36) H 09/04/25 07:48
ALT 19 U/L (0-35) 09/04/25 07:48
Alkaline Phosphatase 49 U/L (38-126) 09/04/25 07:48
Total Protein 5.1 g/dl (6.3-8.2) L 09/04/25 07:48
Albumin 2.6 g/dl (3.5-5.0) L 09/04/25 07:48
Physical Exam
-
AAO x 3
No tachypnea on room air
No tachycardia
Abdomen soft
Bilateral groin sites clean, dry, intact, soft, flat, MATTHEW CDI
Bilateral DP Dopplers audible
Bilateral feet warm and pink
--- NOTE | 2025-09-07 11:46 | CM ---
Addendum entered by Sameer Higginbotham 09/07/25 12:50:
Updated PT evaluation noted - SNF level of care recommended.
CM called [facility] and still experiencing difficulties and resolving the issue.
Original Note:
CM following re: discharge planning.
Reviewed pt's chart, met with pt.
According to MD pt is medically stable to be discharged today. Pt is aware, expressed her agreement and pt stated she preferred [facility]. Pt stated her Prolia injection was due beginning of August and she spoke to Doctor's supervisor warping department and was
told that it is OK to wait for Prolia injection after she returns back home from rehab.
CM spoke to [facility] admissions department and she confirmed they do have a bed available and pt is accepted fpor admission today.
PT must to revaluate the pt, last evaluation was 09/04.
CM called [facility] to initiate an auth and a message says they do have phone difficulties and asked to call back.
D/C plan: [facility] when an auth is available and pt seen by PY for insurance purposes.
[2025-09-07 12:25] VITALS: BP 173/64; PULSE 84; O2SAT 99
[2025-09-07] MEDS: NSS IV (13:33)
--- NOTE | 2025-09-07 14:30 | PTOTSP ---
Speech Language Pathology
Pt seen for dysphagia tx. Seen with P.O. trials of regular solids and thin liquids. With first attempt at consecutive sips of thin liquids, brief throat clear noted with clear vocal quality following. No other throat clear or any coughing noted.
CXR from 09/04 showed L basilar opacity suspicious for PNA. Previous CXRs were clear. WBC trending down. Will continue to monitor and consider instrumental swallowing assessment as indicated.
Recommend:
(1) Upgrade to regular solids/thin liquids
(2) Aspiration precautions: slow rate, sit upright, monitor throat clear/cough with P.O. intake
(3) Meds as tolerated
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
--- NOTE | 2025-09-07 14:45 | W.PN.UPDATE ---
Update Note
Progress Note Update
MATTHEW dressings changed at bedside. Pt tolerated well. Groin site well approximated.
[2025-09-07 15:00] VITALS: BP 159/60
[2025-09-07] MEDS: HEPARIN SC (15:45)
--- NOTE | 2025-09-07 16:11 | PN.CDI ---
CDI
- -
CDI:
Physician Documentation Request
Admit Date: 09/01/25 06:11
Dear Vascular Surgery,
Patient admitted for peripheral vascular disease.
Laboratory Tests
09/01/25 09/03/25 09/05/25
14:41 05:14 05:24
Creatinine 0.8 1.3 H 1.6 H
Clarify which of the following accurately represents the patient's renal status:
JACQUELINE
Rise in creatinine
Other
Criteria for JACQUELINE*
1 Increase in serum creatinine by > or = to 0.3 mg/dL (> or = to 26.5 micromol/L) within 48 hours, OR
2 Increase in serum creatinine to > or = to 1.5 times baseline, which is known or presumed to have occurred within 7 days, OR
3 Urine volume < 0.5 nL/kg/hour for six hours
Use of terms such as suspected, likely, concern for, or probable (associated with a specific diagnosis that is being evaluated, monitored, or treated as if it exists) are acceptable and can be coded in the inpatient setting, when documented at the
time of discharge.
Thank you,
Patti Danielle RN, BSN
CDI Specialist
Available via [facility] text
Please use your independent medical judgment in providing your response.
*Source: Kidney Disease: Improving Global Outcomes (KDIGO) 2012
--- NOTE | 2025-09-07 16:14 | PN.CDI ---
CDI
- -
CDI:
Physician Documentation Request
Admit Date: 09/01/25 06:11
Dear Vascular Surgery,
Patient admitted for peripheral vascular disease.
09/01 Operative Note: 'Estimated Blood Loss: 300 cc'
01/30 Anesthesia with Graphs: 'Input...Total Fluid (mL): 1800'
Laboratory Tests
08/20/25 09/01/25 09/04/25
09:27 14:41 07:48
Hgb 12.5 10.9 L 7.7 L
Hct 36.5 L 31.3 L 22.1 L
Based on the above, could you clarify, in your progress note, which of the following is the most likely type of anemia you are evaluating, monitoring and/or treating?
Acute anemia multifactorial blood loss and hemodilution
Acute blood loss anemia
Hemodilution
Other
Use of terms such as suspected, likely, concern for, or probable (associated with a specific diagnosis that is being evaluated, monitored, or treated as if it exists) are acceptable and can be coded in the inpatient setting, when documented at the
time of discharge.
Thank you,
Patti Danielle RN, BSN
CDI Specialist
Available via [facility] text
Please use your independent medical judgment in providing your response.
[2025-09-07 23:48] VITALS: BP 109/74
[2025-09-08] MEDS: HEPARIN SC ×3 (00:31→08:15)
[2025-09-08] MEDS: ZOSYN 50 IV ×2 (00:31→05:18)
[2025-09-08 07:51] LABS: Hematocrit 27.9 % (37.0-47.0); Hemoglobin 8.9 g/dL (12.0-16.0); Mean Corp Hgb Conc. 31.9 g/dL (33.0-37.0); Mean Corpuscular Volume 103.3 fL (81.0-99.0); Platelet Count 207 10^3/uL (130-400); Red Cell Dist. Width 13.3 % (11.5-14.5)
[2025-09-08 08:00] VITALS: BP 162/78
[2025-09-08 08:09] LABS: Blood Urea Nitrogen 12 mg/dl (7-17); Calcium 7.6 mg/dl (8.4-10.2); Carbon Dioxide 22 mmol/L (22-30); Chloride 109 mmol/L (98-107); Estimated Creatinine Clearance 32 ml/min; Glucose 71 mg/dl (70-99); Potassium 4.2 mmol/L (3.5-5.1); Sodium 135 mmol/L (135-145); eGFR 44.08
[2025-09-08] MEDS: PLAVIX 75 MG PO (08:15)
[2025-09-08] MEDS: CALAN EXTENDED RELEASE 240 MG PO (08:15)
[2025-09-08] MEDS: LOW STRENGTH ASPIRIN 81 MG PO (08:15)
[2025-09-08] MEDS: LIPITOR 80 MG PO (08:15)
[2025-09-08] MEDS: OSCAL 500 + D 500 MG PO (08:15)
[2025-09-08] MEDS: PROTONIX 40 MG PO (08:15)
[2025-09-08] MEDS: METAMUCIL, KONSYL PO (08:16)
[2025-09-08] MEDS: THERAGRAN 1 TABLET PO (08:16)
[2025-09-08] MEDS: KLOR-CON 20 MEQ PO (08:17)
[2025-09-08 08:24] VITALS: BP 162/78
--- NOTE | 2025-09-08 09:23 | W.PN.VS ---
Addendum entered and electronically signed by Clinton Hernandez III, MD 09/08/25 13:34:
This patient was seen and examined in collaboration with JORGE Hunter. I agree with the history and physical exam as well as the assessment and plan. I have the following additions:
No complaints this morning
Overall doing well
Planning for care home facility placement
Complete antibiotic course
Dual antiplatelet therapy
Continue PICOs at SNF
F/U in the office with me after DC
Signed:
Clinton Hernandez III, MD
Vascular Surgery
[facility]
Original Note:
Today's Communication / Plan
-
Seen and assessed with Dr Hernandez
Assessment/Plan
-
Postop day 6
1. Intravascular lithotripsy to the distal abdominal aorta (12 mm x 30 mm Shockwave L6)
2. Intravascular lithotripsy to the left common iliac artery and external iliac artery (9 mm x 30 mm Shockwave L6)
3. Intravascular lithotripsy to the right common iliac artery and external iliac artery (9 mm x 30 mm shockwave L6)
4. Aortoiliac stent grafting using Endologix AFX device for severely calcified aortoiliac occlusive disease (22�60/13�40 AFX main body; 25�75 suprarenal extension)
5. Balloon angioplasty and stenting of left iliac bifurcation and proximal external iliac artery (overlapping express LD stents 10 mm x 37 mm distal common iliac artery, 9 mm x 37 mm proximal external iliac artery)
6. BILATERAL common femoral endarterectomies with profundoplasties and patch angioplasty using bovine pericardium
7. Introduce wire and catheter to aorta from bilateral femoral artery access
8. Diagnostic aortobiiliac arteriogram
Plan:
Continue antibiotics, will transition to PO ABX when she is discharged to SNF
Out of bed as tolerated, physical therapy
Continue ASA and Plavix
Continue speech and physical therapy
Cleared for discharge to SNF
Subjective Data
-
Date of Service: September 08, 2025
Pt seen at bedside this am with Dr Hernandez. Pt ambulated with assistance to the restroom this morning. No events overnight.
Objective Data
-
Vital Signs
Temp Pulse Resp BP Pulse Ox
97.5 F 96 18 162/78 98
09/08/25 08:00 09/08/25 08:00 09/08/25 08:00 09/08/25 08:15 09/08/25 08:00
Intake and Output
09/07/25 09/08/25 09/09/25
06:59 06:59 06:59
Intake Total 3455 / 3455 1625 / 1625
Balance 3455 / 3455 1625 / 1625
Intake:
Oral fluids 480 / 480 1200 / 1200
IV fluids (Total) 2875 / 2875 75 / 75
IV piggybacks 100 / 100 350 / 350
Other:
Number of approximated MODERATE 1 2
amounts of urine
Number of approximated LARGE 1
amounts of urine
Lab Results
09/08/25 06:27
09/08/25 06:27
Calcium 7.6 mg/dl (8.4-10.2) L 09/08/25 06:27
Phosphorus 5.4 mg/dl (2.5-4.5) H 09/01/25 14:41
Magnesium 1.7 mg/dl (1.6-2.3) 09/01/25 14:41
Total Bilirubin 0.5 mg/dl (0.2-1.3) 09/04/25 07:48
AST 60 U/L (14-36) H 09/04/25 07:48
ALT 19 U/L (0-35) 09/04/25 07:48
Alkaline Phosphatase 49 U/L (38-126) 09/04/25 07:48
Total Protein 5.1 g/dl (6.3-8.2) L 09/04/25 07:48
Albumin 2.6 g/dl (3.5-5.0) L 09/04/25 07:48
Physical Exam
-
AAO x 3
No tachypnea on room air
No tachycardia
Abdomen soft
Bilateral groin sites clean, dry, intact, soft, flat, MATTHEW CDI
Bilateral DP Dopplers audible
Bilateral feet warm and pink
--- NOTE | 2025-09-08 10:45 | VATNOTE ---
Right AC area and medial right upper arm grossly ecchymotic from previous infiltrate. Pt. denies pain. Reports less swelling.
--- NOTE | 2025-09-08 10:56 | W.DS.TRANS ---
DC Summary - Lcac Radar Operator/Navigator
-
Discharge Instructions:
Discharge Diagnosis/Procedures Intravascular lithotripsy to the distal
abdominal aorta
Intravascular lithotripsy to the left common
iliac artery and external iliac artery
Intravascular lithotripsy to the right common
iliac artery and external iliac artery
Aortoiliac stent grafting using Endologix AFX
device for severely calcified aortoiliac
occlusive disease
Balloon angioplasty and stenting of left iliac
bifurcation and proximal external iliac artery
BILATERAL common femoral endarterectomies with
profundoplasties and patch angioplasty using
bovine pericardium
Diet As tolerated
Activity No strenuous activity
Driving Restrictions No driving for 2 weeks
Bathing Restrictions OK to Shower
Blood Work BMP lab draw 1 week, script provided
Instructions:
Stand-Alone Forms: Vascular Surg Discharge Instr
Changes to Home Medications: Yes
Discharge Medications:
DC Medications w/original date entered in [employer]
acetaminophen 500 mg tablet (Tylenol Extra Strength) 500 mg PO PRN PRN pain 05/18/21
calcium 333 mg-vit D3 133 unit-magnesium 133 mg-zinc 5 mg tablet (Cruz Mag Zinc Plus D3) 1 ea PO DAILY Supplement 05/18/21
lisinopril 10 mg tablet 20 mg PO DAILY Blood Pressure 05/18/21
Held on 09/08/25. Instructions: Follow up with you PCP for timing of resumption of this medication
verapamil 240 mg 24 hr capsule,extended release 240 mg PO DAILY Blood Pressure 05/18/21
atorvastatin 80 mg tablet 80 mg PO DAILY High Cholesterol 09/07/22
lansoprazole 15 mg capsule,delayed release 15 mg PO Q72H Gastrointestinal Issue 09/07/22
[id number] ac 400 mcg-calcium carb 500 mg-vit K1 20 mcg tablet (Women's 50 Plus Multivitamin) 1 tab PO DAILY Supplement 09/07/22
diclofenac sodium 1 % topical gel 1 ea topical PRN PRN B/L KNEE PAIN 09/18/22
denosumab 60 mg/mL subcutaneous syringe (Prolia) 60 mg SC [id number] osteoporosis 08/18/25
hydrochlorothiazide 25 mg tablet 25 mg PO DAILY Blood Pressure 08/18/25
Held on 09/08/25. Instructions: Follow up with you PCP for timing of resumption of this medication
psyllium 1 tsp PO DAILY Constipation 08/18/25
aspirin 81 mg chewable tablet 81 mg PO DAILY Blood Clot Prevention/Tx 09/01/25
mupirocin 2 % topical ointment 1 applic topical BID groin wounds 09/01/25
ciprofloxacin HCl 250 mg tablet 250 mg PO BID #6 tabs 09/08/25
clopidogrel 75 mg tablet 75 mg PO DAILY #90 tabs 09/08/25
Home Medication Changes
Held lisinopril and hydrochlorothiazide
Added Plavix and cipro
Pending Results: No
--- NOTE | 2025-09-08 11:06 | CM ---
CM following re: discharge planning.
Reviewed pt's chart, met with pt.
Discharge order noted. pt is aware, expressed her agreement with discharge. IMM reviewed, placed on chart, pt has a copy.
CM initiated an auth from [facility] for SNF level of care at [facility], spoke to patient registration representative Daljit and based on pt's clinical pt approved for 7 initial days, level 1, from today 09/08/25 till 09/14/25 with LCD and NRD 09/14/25. Auth: [id number].
For review call [phone]
Auth information forwarded to [facility] director housekeeping and she confirmed that pt is accepted for admission today.
UC to arrange w/c van transport. Pt is aware of fees.
[facility] nursing report: [phone]
Discharge instructions fax: [phone]
D/C plan: [facility]
[2025-09-08] MEDS: FLUZONE HIGH-DOSE 2025-26 0.5 ML IM (11:54)
[2025-09-08] MEDS: ZOSYN IV (12:00)
--- NOTE | 2025-09-08 15:00 | W.PN.UPDATE ---
Update Note
Progress Note Update
CDI:
Physician Documentation Request
Admit Date: 09/01/25 06:11
Patient admitted for peripheral vascular disease.
09/01 Operative Note: 'Estimated Blood Loss: 300 cc'
01/30 Anesthesia with Graphs: 'Input...Total Fluid (mL): 1800'
Laboratory Tests
08/20/25 09/01/25 09/04/25
09:27 14:41 07:48
Hgb 12.5 10.9 L 7.7 L
Hct 36.5 L 31.3 L 22.1 L
Based on the above, could you clarify, in your progress note, which of the following is the most likely type of anemia you are evaluating, monitoring and/or treating?
Acute blood loss anemia d/t open surgical procedure
CDI:
Physician Documentation Request
Admit Date: 09/01/25 06:11
Patient admitted for peripheral vascular disease.
Laboratory Tests
09/01/25 09/03/25 09/05/25
14:41 05:14 05:24
Creatinine 0.8 1.3 H 1.6 H
Clarify which of the following accurately represents the patient's renal status:
JACQUELINE
[2025-09-08 15:21] VITALS: BP 152/58
== END 2025-09-08 15:45 | DRG 269 ==
LOC: 2 SOUTH 06:11
PROVIDERS: Nurse Practitioner; Nurse Practitioner Acute Care; ADMITTING PHYSICIAN Surgery Vascular Surgery; CONSULT PHYSICIAN Internal Medicine; OTHER PHYSICIAN Psychiatry & Neurology Neurology; PRIMARYCARE PHYSICIAN Family Medicine
PROC: 04FH3ZZ Fragmentation of Right External Iliac Artery, Percutaneous Approach (ICD-10-PCS; 2025-09-01)
PROC: 04UL0KZ Supplement Left Femoral Artery with Nonautologous Tissue Substitute, Open Approach (ICD-10-PCS; 2025-09-01)
PROC: 04CL0ZZ Extirpation of Matter from Left Femoral Artery, Open Approach (ICD-10-PCS; 2025-09-01)
PROC: B41D1ZZ Fluoroscopy of Aorta and Bilateral Lower Extremity Arteries using Low Osmolar Contrast (ICD-10-PCS; 2025-09-01)
PROC: 04FY3ZZ Fragmentation of Lower Artery, Percutaneous Approach (ICD-10-PCS; 2025-09-01)
PROC: 04FC3ZZ Fragmentation of Right Common Iliac Artery, Percutaneous Approach (ICD-10-PCS; 2025-09-01)
PROC: 04V03EZ Restriction of Abdominal Aorta with Branched or Fenestrated Intraluminal Device, One or Two Arteries, Percutaneous Approach (ICD-10-PCS; 2025-09-01)
PROC: 04CK0ZZ Extirpation of Matter from Right Femoral Artery, Open Approach (ICD-10-PCS; 2025-09-01)
PROC: 04UK0KZ Supplement Right Femoral Artery with Nonautologous Tissue Substitute, Open Approach (ICD-10-PCS; 2025-09-01)
PROC: 04FD3ZZ Fragmentation of Left Common Iliac Artery, Percutaneous Approach (ICD-10-PCS; 2025-09-01)
PROC: 04FJ3ZZ Fragmentation of Left External Iliac Artery, Percutaneous Approach (ICD-10-PCS; 2025-09-01)
PROC: 047D3EZ Dilation of Left Common Iliac Artery with Two Intraluminal Devices, Percutaneous Approach (ICD-10-PCS; 2025-09-01)
PROC: 5A09357 Assistance with Respiratory Ventilation, Less than 24 Consecutive Hours, Continuous Positive Airway Pressure (ICD-10-PCS; 2025-09-03)
PROC: 30233N1 Transfusion of Nonautologous Red Blood Cells into Peripheral Vein, Percutaneous Approach (ICD-10-PCS; 2025-09-04)
PROC: 3E02340 Introduction of Influenza Vaccine into Muscle, Percutaneous Approach (ICD-10-PCS; 2025-09-08)
DX: I74.09 Other arterial embolism and thrombosis of abdominal aorta (principal); I74.5 Embolism and thrombosis of iliac artery; I74.3 Embolism and thrombosis of arteries of the lower extremities; D62 Acute posthemorrhagic anemia; N17.9 Acute kidney failure, unspecified; I70.0 Atherosclerosis of aorta; N18.9 Chronic kidney disease, unspecified; I12.9 Hypertensive chronic kidney disease with stage 1 through stage 4 chronic kidney disease, or unspecified chronic kidney disease; K21.9 Gastro-esophageal reflux disease without esophagitis; E78.00 Pure hypercholesterolemia, unspecified; G47.33 Obstructive sleep apnea (adult) (pediatric); G89.29 Other chronic pain; M54.9 Dorsalgia, unspecified; R26.2 Difficulty in walking, not elsewhere classified; I08.0 Rheumatic disorders of both mitral and aortic valves; I99.8 Other disorder of circulatory system; M81.0 Age-related osteoporosis without current pathological fracture; R47.1 Dysarthria and anarthria; Z60.2 Problems related to living alone; Z79.82 Long term (current) use of aspirin; Z23 Encounter for immunization; Z90.710 Acquired absence of both cervix and uterus; Z98.42 Cataract extraction status, left eye; Z98.41 Cataract extraction status, right eye; Z79.899 Other long term (current) drug therapy
CPT/HCPCS: 34705; 36415; 70450; 70496; 70498; 71045; 71046; 75630; 80048; 80053; 80061; 81003; 81015; 82607; 82728; 82746; 82962; 83036; 83735; 84100; 84443; 85014; 85018; 85025; 85027; 85610; 85730; 86850; 86900; 86901; 86920; 87077; 87086; 87186; 88304; 88311; 90662; 92523; 92526; 92610; 93005; 93308; 93321; 93325; 93880; 97163; 97530; C1725; C1769; C1773; C1876; C1894; C2628; C9765; G0008; P9016; Q9967

== ENCOUNTER → 2025-09-11 11:01 | Outpatient (REF) | payer OTHER, SELFPAY ==
[2025-09-11 12:07] LABS: Hematocrit 28.0 % (37.0-47.0); Hemoglobin 9.2 g/dL (12.0-16.0); Mean Corp Hgb Conc. 32.9 g/dL (33.0-37.0); Mean Corpuscular Volume 100.4 fL (81.0-99.0); Nucleated Red Blood Cells % 0 %; Red Cell Dist. Width 13.4 % (11.5-14.5)
[2025-09-11 12:38] LABS: Platelet Count 249 10^3/uL (130-400)
== END ==
LOC: OLABP 11:01
PROVIDERS: ATTENDING PHYSICIAN Family Medicine
DX: E53.8 Deficiency of other specified B group vitamins (principal); E55.9 Vitamin D deficiency, unspecified; E66.01 Morbid (severe) obesity due to excess calories; E78.2 Mixed hyperlipidemia; G47.33 Obstructive sleep apnea (adult) (pediatric); I10 Essential (primary) hypertension; I35.1 Nonrheumatic aortic (valve) insufficiency; I65.29 Occlusion and stenosis of unspecified carotid artery; K21.9 Gastro-esophageal reflux disease without esophagitis
CPT/HCPCS: 36415; 85025

== ENCOUNTER → 2025-09-15 10:38 | Outpatient (REF) | payer OTHER, SELFPAY ==
[2025-09-15 11:16] LABS: Blood Urea Nitrogen 30 mg/dl (7-17); Calcium 9.4 mg/dl (8.4-10.2); Carbon Dioxide 28 mmol/L (22-30); Chloride 99 mmol/L (98-107); Glucose 81 mg/dl (70-99); Potassium 4.6 mmol/L (3.5-5.1); Sodium 131 mmol/L (135-145); eGFR 40.05
== END ==
LOC: OLABP 10:38
PROVIDERS: ATTENDING PHYSICIAN Family Medicine
DX: E53.8 Deficiency of other specified B group vitamins (principal); E55.9 Vitamin D deficiency, unspecified; E78.2 Mixed hyperlipidemia; G47.33 Obstructive sleep apnea (adult) (pediatric); I10 Essential (primary) hypertension
CPT/HCPCS: 36415; 80048

== ENCOUNTER → 2025-09-17 11:00 | Outpatient (REF) | payer OTHER, SELFPAY ==
[2025-09-17 12:00] LABS: Hematocrit 24.6 % (37.0-47.0); Hemoglobin 8.0 g/dL (12.0-16.0); Mean Corp Hgb Conc. 32.5 g/dL (33.0-37.0); Mean Corpuscular Volume 100.8 fL (81.0-99.0); Nucleated Red Blood Cells % 0 %; Platelet Count 252 10^3/uL (130-400); Red Cell Dist. Width 13.4 % (11.5-14.5)
[2025-09-17 12:07] LABS: Blood Urea Nitrogen 28 mg/dl (7-17); Calcium 9.2 mg/dl (8.4-10.2); Carbon Dioxide 29 mmol/L (22-30); Chloride 98 mmol/L (98-107); Glucose 84 mg/dl (70-99); Potassium 4.1 mmol/L (3.5-5.1); Sodium 129 mmol/L (135-145); eGFR 40.05
== END ==
LOC: OLABP 11:00
PROVIDERS: ATTENDING PHYSICIAN Family Medicine
DX: Z48.812 Encounter for surgical aftercare following surgery on the circulatory system (principal); E53.8 Deficiency of other specified B group vitamins; E55.9 Vitamin D deficiency, unspecified; E66.01 Morbid (severe) obesity due to excess calories; E78.2 Mixed hyperlipidemia
CPT/HCPCS: 36415; 80048; 85025

== ENCOUNTER → 2025-09-18 09:45 | Outpatient (REF) | payer OTHER, SELFPAY ==
[2025-09-18 11:46] LABS: Hematocrit 23.8 % (37.0-47.0); Hemoglobin 8.0 g/dL (12.0-16.0); Mean Corp Hgb Conc. 33.6 g/dL (33.0-37.0); Mean Corpuscular Volume 102.1 fL (81.0-99.0); Platelet Count 234 10^3/uL (130-400); Red Cell Dist. Width 13.5 % (11.5-14.5)
[2025-09-18 12:08] LABS: Blood Urea Nitrogen 27 mg/dl (7-17); Calcium 9.5 mg/dl (8.4-10.2); Carbon Dioxide 27 mmol/L (22-30); Chloride 100 mmol/L (98-107); Glucose 84 mg/dl (70-99); Potassium 4.1 mmol/L (3.5-5.1); Sodium 132 mmol/L (135-145); eGFR 36.64
== END ==
LOC: OLABP 09:45
PROVIDERS: ATTENDING PHYSICIAN Family Medicine
DX: Z48.812 Encounter for surgical aftercare following surgery on the circulatory system (principal); E53.8 Deficiency of other specified B group vitamins; E55.9 Vitamin D deficiency, unspecified; E66.01 Morbid (severe) obesity due to excess calories; E78.2 Mixed hyperlipidemia; G47.33 Obstructive sleep apnea (adult) (pediatric); M76.30 Iliotibial band syndrome, unspecified leg; I35.1 Nonrheumatic aortic (valve) insufficiency; I70.0 Atherosclerosis of aorta; I73.9 Peripheral vascular disease, unspecified; K21.9 Gastro-esophageal reflux disease without esophagitis; K22.2 Esophageal obstruction
CPT/HCPCS: 36415; 80048; 85027

== ENCOUNTER → 2025-09-30 11:53 | Outpatient (REF) | payer OTHER, SELFPAY ==
[2025-09-30 12:15] LABS: Hematocrit 27.8 % (37.0-47.0); Hemoglobin 8.9 g/dL (12.0-16.0); Mean Corp Hgb Conc. 32.0 g/dL (33.0-37.0); Mean Corpuscular Volume 105.3 fL (81.0-99.0); Nucleated Red Blood Cells % 0 %; Platelet Count 224 10^3/uL (130-400); Red Cell Dist. Width 13.0 % (11.5-14.5)
[2025-09-30 12:23] LABS: Blood Urea Nitrogen 29 mg/dl (7-17); Calcium 10.0 mg/dl (8.4-10.2); Carbon Dioxide 31 mmol/L (22-30); Chloride 96 mmol/L (98-107); Glucose 77 mg/dl (70-99); Potassium 4.9 mmol/L (3.5-5.1); Sodium 129 mmol/L (135-145); eGFR 31.21
== END ==
LOC: OLABP 11:53
PROVIDERS: ATTENDING PHYSICIAN Family Medicine
DX: M81.0 Age-related osteoporosis without current pathological fracture (principal); N18.2 Chronic kidney disease, stage 2 (mild); M46.1 Sacroiliitis, not elsewhere classified; K22.2 Esophageal obstruction; Z48.812 Encounter for surgical aftercare following surgery on the circulatory system; E53.8 Deficiency of other specified B group vitamins
CPT/HCPCS: 36415; 80048; 85025

== ENCOUNTER → 2025-10-07 10:04 | Outpatient (REF) | payer OTHER, SELFPAY ==
[2025-10-07 10:41] LABS: Hematocrit 24.8 % (37.0-47.0); Hemoglobin 8.1 g/dL (12.0-16.0); Mean Corp Hgb Conc. 32.7 g/dL (33.0-37.0); Mean Corpuscular Volume 99.6 fL (81.0-99.0); Nucleated Red Blood Cells % 0 %; Platelet Count 221 10^3/uL (130-400); Red Cell Dist. Width 13.3 % (11.5-14.5)
[2025-10-07 11:00] LABS: Blood Urea Nitrogen 26 mg/dl (7-17); Calcium 8.6 mg/dl (8.4-10.2); Carbon Dioxide 30 mmol/L (22-30); Chloride 101 mmol/L (98-107); Glucose 78 mg/dl (70-99); Potassium 4.0 mmol/L (3.5-5.1); Sodium 133 mmol/L (135-145); eGFR 33.73
== END ==
LOC: OLABP 10:04
PROVIDERS: ATTENDING PHYSICIAN Family Medicine
DX: I10 Essential (primary) hypertension (principal); M46.1 Sacroiliitis, not elsewhere classified; K22.2 Esophageal obstruction; M81.0 Age-related osteoporosis without current pathological fracture; K21.9 Gastro-esophageal reflux disease without esophagitis
CPT/HCPCS: 36415; 80048; 85025

== ENCOUNTER → 2025-10-23 09:03 | Outpatient (REF) | payer OTHER, SELFPAY | LOC: RAD 09:03 | PROVIDERS: ATTENDING PHYSICIAN Registered Nurse; FAMILY PHYSICIAN Family Medicine | DX: I73.9 Peripheral vascular disease, unspecified (principal) | CPT/HCPCS: 93922; 93925; 93978 ==